=== PATIENT | male | born 1985 | race Caucasian/White ===

== ENCOUNTER 2021-01-10 08:29 | Emergency (ER) | payer OTHER ==
[2021-01-10 08:41] VITALS: BP 111/73; PULSE 69; O2SAT 99
--- NOTE | 2021-01-10 08:59 | ERPHSYRPT ---
- History of Present Illness Time Seen by Provider: 01/10/21 08:55 Source: patient Exam Limitations: no limitations Patient Subjective Stated Complaint: Pt states that he has "swollen discs and sciatica" and it began hurting around midnight last night Triage Nursing Assessment: Pt drove self to the ER, vitals wnl, rates pain 10/10, states that the pain is in his lower left back and shoots down his left leg, wiggling legs and doesn't appear to be in any distress, pulses normal, denies injury Physician History: Is a 35-year-old male who presents with a complaint of back pain which started about midnight last night. He did go fishing on a boat yesterday and thinks that sitting on the narrow metal bench may have aggravated his chronic sciatica. He states it could have years ago he was working for [employer] and had a CT done at [facility] in [place] that showed a swollen disc impinging on the nerve in the left leg. He has had no further imaging since then. Timing/Duration: today Method of Injury: unknown, prior injury Quality: burning, radiating (Left leg), sharp Back Pain Location: lumbar spine Back Pain Radiation: buttocks, upper legs Severity of Pain-Max: severe Severity of Pain-Current: severe Modifying Factors: Improves With: movement Associated Symptoms: denies symptoms Previous symptoms: same symptoms as today Allergies/Adverse Reactions: No Known Drug Allergies Allergy (Verified 01/10/21 08:41) Home Medications: Albuterol Sulfate [Albuterol Sulfate Hfa] 1 inh PO UD PRN 01/10/21 [History] Budesonide/Formoterol Fumarate [Budesonide-Formoterol 160-4.5] 1 inh PO UD PRN 01/10/21 [History] Olanzapine 5 mg [zyPREXA 5MG TABLET] 5 mg PO DAILY 01/10/21 [History] clonazePAM [Clonazepam] 1 mg PO DAILY 01/10/21 [History] Travel Risk - International Travel Have you traveled outside of the country in past 3 weeks: No - Coronavirus Screening Are you exhibiting any of the following symptoms?: No Close contact with a COVID-19 positive Pt in past 14-21 Days: No - Vaccine Status Have you recieved a Covid-19 vaccination: No - Review of Systems Constitutional: No Fever, No Chills Eyes: No Symptoms Ears, Nose, & Throat: No Symptoms Respiratory: No Cough, No Dyspnea Cardiac: No Chest Pain, No Edema, No Syncope Abdominal/Gastrointestinal: No Abdominal Pain, No Nausea, No Vomiting, No Diarrhea Genitourinary Symptoms: No Dysuria Musculoskeletal: Back Pain, No Neck Pain Skin: No Rash Neurological: No Dizziness, No Focal Weakness, No Sensory Changes Psychological: No Symptoms Endocrine: No Symptoms All Other Systems: Reviewed and Negative - Past Medical History Pertinent Past Medical History: Yes Respiratory History: Asthma Other Medical History: disc - Past Surgical History Past Surgical History: Yes Other Surgical History: fatty tumor removed from back - Social History Smoking Status: Never smoker Exposure to second hand smoke: No Drug Use: none Patient Lives Alone: Yes - Nursing Vital Signs Nursing Vital Signs: Initial Vital Signs Temperature 97.2 F 01/10/21 08:32 Pulse Rate 69 01/10/21 08:32 Blood Pressure 111/73 01/10/21 08:32 O2 Sat by Pulse Oximetry 99 01/10/21 08:32 Pain Scale Pain Intensity [Left Posterior 10 Distal Back] Pain Intensity 10 - Physical Exam General Appearance: mild distress, alert Eye Exam: PERRL/EOMI, eyes nml inspection Neck Exam: normal inspection, non-tender, supple, full range of motion, No meningismus, No midline tenderness Respiratory Exam: normal breath sounds, lungs clear, No respiratory distress Cardiovascular Exam: regular rate/rhythm, normal heart sounds Gastrointestinal Exam: soft, No tenderness, No mass Back Exam: normal inspection, vertebral tenderness, decreased range of motion, muscle spasm, point tenderness Extremity Exam: normal inspection, normal range of motion, No calf tenderness, No pedal edema Neurologic Exam: alert, oriented x 3, cooperative, digital analyst II-XII nml as tested, normal mood/affect, sensation nml, abnormal gait, other (Straight leg positive on the left), No motor deficits Skin Exam: normal color, warm, dry, No rash SpO2 Interpretation: normal SpO2: 99 O2 Delivery: Room Air - CT Exams Lumbar Spine CT Interpretation: Tele-radiologist Report, Other (Teleradiology report says impression was no fracture bilateral sacroiliitis and some mild bilateral lateral recess stenosis at L4-5 and L5-S1.) Ordered Tests: Active Orders 24 hr Category Date Time Status LUMBAR SPINE W/O [CT] Stat Exams 01/10/21 08:46 Ordered - Progress Progress: unchanged - Departure Departure Disposition: Home Clinical Impression: Bilateral sacroiliitis, Radiculopathy Condition: Stable Critical Care Time: No Referrals: Provider,Unknown [Primary Care Provider] - Instructions: Low Back Pain (DC), Sciatica (DC) Prescriptions: Hydrocodone/Acetaminophen [Hydrocodone-Acetamin 5-325 mg] 1 tab PO Q6HPRN PRN 3 Days #12 tablet MDD 4 PRN Reason: Pain Prednisone 10 mg [Deltasone 10 mg] 20 mg PO TID 4 Days #24 tablet Diclofenac Sodium 50 mg [Voltaren 50 mg] 50 mg PO TID 30 Days #90 tablet.ec
--- NOTE | 2021-01-10 21:44 | XRAY ---
Indication: Low back pain. Left sciatica. Multiple contiguous axial images obtained through the lumbar spine. Sagittal and coronal reformatted images obtained. Comparison: None SI joints are bilaterally sclerotic favoring sacroiliitis. No focal disc herniation, spinal canal, or foraminal stenosis. Facets are symmetric. Sagittal and coronal reformatted images demonstrates normal alignment with vertebral body heights/disc spaces maintained. Tiny T12-L2 Schmorl nodes. No acute or subluxation. Visualized noncontrasted soft tissues are unremarkable. Impression: Bilateral sacroiliitis. Multilevel Schmorl nodes. Comment: Preliminary interpretation was made by [facility]. No critical discrepancy.
== END 2021-01-10 10:03 | disposition home or self-care (01) ==
LOC: ED 08:29
DX: M46.1 Sacroiliitis, not elsewhere classified (principal); M54.10 Radiculopathy, site unspecified
CPT/HCPCS: 72131; 99283

== ENCOUNTER 2021-08-12 06:28 | Emergency (ER) | payer OTHER ==
[2021-08-12 06:43] VITALS: PULSE 62; O2SAT 96
[2021-08-12] MEDS ORDERED: TORAdol 30 mg Injection ONE (07:17)
[2021-08-12] MEDS ORDERED: DECADRON 10MG INJ. ONE (07:18)
[2021-08-12] MEDS: TORAdol 30 mg Injection IM ONE (07:22)
[2021-08-12] MEDS: DECADRON 10MG INJ. IM ONE (07:23)
--- NOTE | 2021-08-12 07:26 | ERPHSYRPT ---
- History of Present Illness Time Seen by Provider: 08/12/21 06:45 Source: patient Exam Limitations: no limitations Patient Subjective Stated Complaint: lower back pain Triage Nursing Assessment: Patient ambulated back to ED and transferred self to bed. Patient A+O X 3. Patient's skin pink, warm and dry. Patient complains of left lower back pain that radiates down left buttock and into left leg 8. Patient denies recent injury and states he has sciatica problems. Physician History: Patient is a 35-year-old male with history of sciatica confirmed on MRI presents to our ED with a flareup of his sciatica. Patient states he has a bulging disc that is pinching on his left sciatic nerve. Patient states that when it flares up its treated with Ultram and/or Lortab. Patient states he awoke this morning with his pain. The pain this morning is the same as is typical of sciatica flareup. Patient states his job is physically demanding and he is standing up for long periods of time. Pain described as an ache that radiates down to his foot. No trauma. No fever. No saddle anesthesia. No change in bowel bladder function. No lower extremity weakness. No numbness tingling or weakness. No hematuria or dysuria. No urinary symptomology. Symptoms are mild to moderate in intensity. Standing for prolonged periods of time laying flat for prolonged period of time reproduce symptoms. Patient voices no other complaints or concerns at this time. Timing/Duration: today Method of Injury: other (Lying flat) Quality: burning, aching Back Pain Location: lumbar spine Back Pain Radiation: lower legs (Pain radiates from the low back down to his left lower extremity.) Severity of Pain-Max: moderate Severity of Pain-Current: mild Modifying Factors: Improves With: other (Prolonged static positions straight leg raise also reproduce pain.) Associated Symptoms: denies symptoms Previous symptoms: same symptoms as today Allergies/Adverse Reactions: No Known Drug Allergies Allergy (Verified 08/12/21 06:35) Home Medications: clonazePAM [Clonazepam] 1 mg PO DAILY 01/10/21 [History] Hx Influenza Vaccination/Date Given: Yes Hx Pneumococcal Vaccination/Date Given: Yes Immunizations Up to Date: Yes Travel Risk - International Travel Have you traveled outside of the country in past 3 weeks: No - Coronavirus Screening Are you exhibiting any of the following symptoms?: No Close contact with a COVID-19 positive Pt in past 14-21 Days: No - Vaccine Status Have you recieved a Covid-19 vaccination: No - Review of Systems Constitutional: No Symptoms, No Fever, No Chills Eyes: No Symptoms Ears, Nose, & Throat: No Symptoms Respiratory: No Symptoms, No Cough, No Dyspnea Cardiac: No Symptoms, No Chest Pain, No Edema, No Syncope Abdominal/Gastrointestinal: No Symptoms, No Abdominal Pain, No Nausea, No Vomiting, No Diarrhea Genitourinary Symptoms: No Symptoms, No Dysuria Musculoskeletal: No Symptoms, No Back Pain, No Neck Pain Skin: No Symptoms, No Rash Neurological: No Symptoms, No Dizziness, No Focal Weakness, No Sensory Changes Psychological: No Symptoms Endocrine: No Symptoms Hematologic/Lymphatic: No Symptoms Immunological/Allergic: No Symptoms All Other Systems: Reviewed and Negative - Past Medical History Pertinent Past Medical History: Yes Respiratory History: Asthma Other Medical History: disc - Past Surgical History Past Surgical History: Yes Other Surgical History: fatty tumor removed from back - Social History Smoking Status: Never smoker Exposure to second hand smoke: No Drug Use: none Patient Lives Alone: Yes - Nursing Vital Signs Nursing Vital Signs: Initial Vital Signs Temperature 98.1 F 08/12/21 06:37 Pulse Rate 62 08/12/21 06:37 Respiratory Rate 18 08/12/21 06:37 Blood Pressure 124/64 08/12/21 06:37 O2 Sat by Pulse Oximetry 96 08/12/21 06:37 Pain Scale Pain Intensity 8 - Physical Exam General Appearance: no apparent distress, alert Eye Exam: PERRL/EOMI, eyes nml inspection Ears, Nose, Throat Exam: normal ENT inspection, pharynx normal, moist mucous membranes Neck Exam: normal inspection, non-tender, supple, full range of motion, No meningismus, No midline tenderness Respiratory Exam: normal breath sounds, lungs clear, airway intact, No respiratory distress Cardiovascular Exam: regular rate/rhythm, normal heart sounds Gastrointestinal Exam: soft, normal bowel sounds, No tenderness, No mass Extremity Exam: normal inspection, normal range of motion, other (Positive straight leg raise), No calf tenderness, No pedal edema Peripheral Pulses: dorsalis-pedis (R): 2+, dorsalis-pedis (L): 2+ Neurologic Exam: alert, oriented x 3, cooperative, supervisor ovens II-XII nml as tested, normal mood/affect, sensation nml, No motor deficits Skin Exam: normal color, warm, dry, No rash SpO2 Interpretation: normal SpO2: 96 O2 Delivery: Room Air - Course Nursing assessment & vital signs reviewed: Yes Ordered Tests: Medication Summary Discontinued Medications Generic Name Dose Route Start Last Admin Trade Name Karina PRN Reason Stop Dose Admin Dexamethasone Sodium Phosphate 8 mg 08/12/21 07:15 Dexamethasone Sod Phosphate 10 Mg/Ml IM 08/12/21 07:16 STAT ONE Ketorolac Tromethamine 60 mg 08/12/21 07:14 Ketorolac Tromethamine 30 Mg/Ml Inj IM 08/12/21 07:15 STAT ONE - Progress Progress: improved Progress Note: Patient is a 35-year-old male presents to our ED with complaints of flareup of his known sciatica. This has been confirmed on MRI. Patient states he has bulging disc. Patient requesting Lortab and Ultram for pain control. I explained to patient that this is not the optimal treatment for his back pain. Patient received a dose of Toradol and Decadron in our ED. A prescription for Toradol was provided to patient. Patient states he is receiving pain relief. Yasir pinto is scheduled to work today. Patient states he is ready for discharge however will need a work note. Work note was written for patient. Patient should take a minimum of 3 days off until symptoms improve. Patient agrees to follow-up with primary care doctor within 48 hours for reevaluation. Patient voices no other complaints or concerns at this time. Patient requesting discharge. Portions of this note were created with voice recognition technology. There may be grammatical, spelling, punctuation or sound alike errors 08/12/21 07:30 Counseled pt/family regarding: diagnosis, need for follow-up - Departure Departure Disposition: Home Clinical Impression: Sciatica Condition: Stable Critical Care Time: No Referrals: GURJIT JOSEPH MD [Primary Care Provider] - Follow up/PCP as directed Instructions: Sciatica (DC), Low Back Pain (DC) Additional Instructions: Discharge/Care Plan ASHLY ROSS was seen on 08/12/21 in the Emergency Room. The patient was counseled regarding Diagnosis,Lab results, Imaging studies, need for follow up and when to return to the Emergency Room. Prescriptions given: Discharge Note I have spoken with the patient and/or caregivers. I have explained the patient's condition, diagnosis and treatment plan based on the information available to me at this time. I have answered the patient's and/or caregiver's questions and addressed any concerns. The patient and/or caregivers have as good understanding of the patient's diagnosis, condition and treatment plan as can be expected at this point. The vital signs have been stable. The patient's condition is stable and appropriate for discharge from the emergency department. The patient will pursue further outpatient evaluation with the primary care physician or other designated or consulting physician as outlined in the discharge instructions. The patient and/or caregivers are agreeable to this plan of care and follow-up instructions have been explained in detail. The patient and/or caregivers have received these instruction. The patient/and or caregivers are aware that any significant change in condition or worsening of symptoms should prompt an immediate return to this or the closest emergency department or call 911. Forms: Work/School Release Form
[2021-08-12 07:40] VITALS: BP 119/50
== END 2021-08-12 08:00 | disposition home or self-care (01) ==
LOC: ED 06:28
DX: M54.32 Sciatica, left side (principal)
CPT/HCPCS: 96372; 99284; J1100; J1885

== ENCOUNTER 2021-09-29 04:51 | Emergency (ER) | payer OTHER ==
--- NOTE | 2021-09-29 05:14 | ERPHSYRPT ---
- History of Present Illness Time Seen by Provider: 09/29/21 05:00 Source: patient Exam Limitations: no limitations Patient Subjective Stated Complaint: lt wrist pain Triage Nursing Assessment: pt c/o lt wrist pain after pulling on a drum mold at work yesterday. Pt states, "I think I heard a pop". Lt Radial pulse present. No edema or bruising noted. Physician History: Patient is a 36-year-old male presents to our ED with complaint of left wrist pain. Patient states he was pulling on a drum mold at work. At that moment patient felt a pop. Since then patient has been experiencing pain involving his entire left wrist. No blunt trauma. No numbness tingling weakness. Pain described as an ache that is localized. No radiation. Pain reproduced with movement and palpation. Pain improved with rest. Symptoms are mild to moderate in intensity. Patient voices no other complaints or concerns at this time. Patient has taken Tylenol and ibuprofen prior to arrival. Occurred: yesterday Method of Injury: other (Pulling) Quality: intermittent Severity of Pain-Max: moderate Severity of Pain-Current: mild Extremities Pain Location: wrist: left Modifying Factors: Improves With: movement Associated Symptoms: none Allergies/Adverse Reactions: No Known Drug Allergies Allergy (Verified 09/29/21 05:08) Home Medications: clonazePAM [Clonazepam] 1 mg PO DAILY 01/10/21 [History] Hx Tetanus, Diphtheria Vaccination/Date Given: Yes Hx Influenza Vaccination/Date Given: Yes Hx Pneumococcal Vaccination/Date Given: No Immunizations Up to Date: Yes Travel Risk - International Travel Have you traveled outside of the country in past 3 weeks: No - Coronavirus Screening Are you exhibiting any of the following symptoms?: No Close contact with a COVID-19 positive Pt in past 14-21 Days: No - Vaccine Status Have you recieved a Covid-19 vaccination: No - Review of Systems Constitutional: No Symptoms, No Fever, No Chills Eyes: No Symptoms Ears, Nose, & Throat: No Symptoms Respiratory: No Symptoms, No Cough, No Dyspnea Cardiac: No Symptoms, No Chest Pain, No Edema, No Syncope Abdominal/Gastrointestinal: No Symptoms, No Abdominal Pain, No Nausea, No Vomiting, No Diarrhea Genitourinary Symptoms: No Symptoms, No Dysuria Musculoskeletal: No Symptoms, No Back Pain, No Neck Pain Skin: No Symptoms, No Rash Neurological: No Symptoms, No Dizziness, No Focal Weakness, No Sensory Changes Psychological: No Symptoms Endocrine: No Symptoms Hematologic/Lymphatic: No Symptoms Immunological/Allergic: No Symptoms All Other Systems: Reviewed and Negative - Past Medical History Pertinent Past Medical History: Yes Respiratory History: Asthma Other Medical History: 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 - Past Surgical History Past Surgical History: Yes Other Surgical History: fatty tumor removed from back - Social History Smoking Status: Current every day smoker How long have you smoked: 15 yrs Exposure to second hand smoke: Yes Drug Use: none Patient Lives Alone: No - Nursing Vital Signs Nursing Vital Signs: Initial Vital Signs Temperature 97.7 F 09/29/21 04:51 Pulse Rate 67 09/29/21 04:51 Respiratory Rate 18 09/29/21 04:51 Blood Pressure 121/69 09/29/21 04:51 O2 Sat by Pulse Oximetry 97 09/29/21 04:51 Pain Scale Pain Intensity 8 - Physical Exam General Appearance: no apparent distress, alert Eyes, Ears, Nose, Throat Exam: normal ENT inspection, TMs normal, pharynx normal, moist mucous membranes Neck Exam: normal inspection, non-tender, supple, full range of motion Cardiovascular/Respiratory Exam: chest non-tender, normal breath sounds, regular rate/rhythm, heart sounds normal, no respiratory distress Abdominal Exam: non-tender, soft, No guarding Back Exam: normal inspection, normal range of motion, No vertebral tenderness Shoulder Exam: normal inspection, non-tender, no evidence of injury, normal ROM Elbow/Forearm Exam: normal inspection, non-tender, no evidence of injury, normal ROM Wrist Exam: normal inspection, non-tender, no evidence of injury, bone tenderness (Circumferential wrist tenderness. Pain not isolated to the anatomic snuffbox or the scaphoid.), limited ROM (Limited due to pain. Involve extremities neurovascular intact distally. Compartments are soft. Cap refill less than 2 seconds.) Hand Exam: normal inspection, non-tender, no evidence of injury, normal ROM Neuro/Tendon Exam: normal sensation, normal motor functions, normal tendon functions Mental Status Exam: alert, oriented x 3, cooperative Skin Exam: normal color, warm, dry SpO2 Interpretation: normal, borderline oxygenation SpO2: 97 O2 Delivery: Room Air - Course Nursing assessment & vital signs reviewed: Yes - Radiology Exams Wrist X-ray Interpretation: Interpreted by me (No fractures or dislocations. No soft tissue abnormalities.) Ordered Tests: Active Orders 24 hr Category Date Time Status WRIST (MIN 3 VIEWS) Stat Exams 09/29/21 05:06 Taken - Progress Progress: improved Progress Note: Patient reassessed. He is resting comfortably. Patient requested ibuprofen for pain control. X-ray negative for fracture dislocation. No soft tissue abnormalities. Patient received a left wrist cock-up splint. Patient referred to orthopedic clinic for further evaluation and treatment. No indication for further work-up at this time. Will discharge home. Patient agrees to follow-up with the orthopedic clinic within 48 hours for evaluation. He voices no other complaints or concerns at this time. Portions of this note were created with voice recognition technology. There may be grammatical, spelling, punctuation or sound alike errors 09/29/21 05:31 Counseled pt/family regarding: diagnosis, need for follow-up, rad results - Departure Departure Disposition: Home Clinical Impression: Wrist sprain Condition: Stable Critical Care Time: No Referrals: GURJIT JOSEPH MD [Primary Care Provider] - Follow up/PCP as directed Additional Instructions: Discharge/Care Plan ASHLY ROSS was seen on 09/29/21 in the Emergency Room. The patient was counseled regarding Diagnosis,Lab results, Imaging studies, need for follow up and when to return to the Emergency Room. Prescriptions given: Discharge Note I have spoken with the patient and/or caregivers. I have explained the patient's condition, diagnosis and treatment plan based on the information available to me at this time. I have answered the patient's and/or caregiver's questions and addressed any concerns. The patient and/or caregivers have as good understanding of the patient's diagnosis, condition and treatment plan as can be expected at this point. The vital signs have been stable. The patient's condition is stable and appropriate for discharge from the emergency department. The patient will pursue further outpatient evaluation with the primary care physician or other designated or consulting physician as outlined in the discharge instructions. The patient and/or caregivers are agreeable to this plan of care and follow-up instructions have been explained in detail. The patient and/or caregivers have received these instruction. The patient/and or caregivers are aware that any significant change in condition or worsening of symptoms should prompt an immediate return to this or the closest emergency department or call 911. Outpatient Orders: Ortho Referral Time Frame: 1 Day, Facility: [facility], Location: ORTHO CLINIC
[2021-09-29] MEDS ORDERED: MOTRIN 600 MG PO ONE (05:36)
[2021-09-29] MEDS ORDERED: MOTRIN 600 MG ONE (05:39)
[2021-09-29 05:54] VITALS: BP 108/58; PULSE 64; O2SAT 98
--- NOTE | 2021-09-29 09:00 | XRAY ---
Indication: Pain following injury. Comparison: None 3 view left wrist obtained. No bony, articular, or soft tissue abnormalities.
== END 2021-09-29 05:53 | disposition home or self-care (01) ==
LOC: ED 04:51
DX: S63.502A Unspecified sprain of left wrist, initial encounter (principal); X50.0XXA Overexertion from strenuous movement or load, initial encounter; Y99.0 Civilian activity done for income or pay; Z72.0 Tobacco use
CPT/HCPCS: 73110; 99284; L3908; A9270-GY

== ENCOUNTER 2022-01-18 11:03 | Emergency (ER) | payer OTHER ==
[2022-01-18] MEDS ORDERED: Sodium Chloride 0.9% 1000 ML 1,000 ML IV STA (11:51)
[2022-01-18] MEDS ORDERED: PERCOCET TABLET 5/325MG PO ONE (11:51)
[2022-01-18] MEDS ORDERED: Zofran 4 MG/2 ML VIAL IV ONE (11:59)
[2022-01-18] MEDS ORDERED: Zofran 4 MG/2 ML VIAL ONE (11:59)
[2022-01-18] MEDS ORDERED: PERCOCET TABLET 5/325MG ONE (12:00)
[2022-01-18] MEDS ORDERED: Sodium Chloride 0.9% 1000 ML 1,000 ML ONE (12:00)
[2022-01-18 12:06] LABS: Absolute Neutrophil Ct (ANC) 5.26 x10^3/uL (1.4-6.9); Basophil (Absolute #) 0.05 x10^3/uL (0-0.4); Eosinophil % 4.3 % (0.00-5.0); Eosinophil (Absolute #) 0.37 x10^3/uL (0-0.5); Hematocrit 49.1 % (42-50); Hemoglobin 16.4 g/dL (12.5-18.0); Lymphocyte (Absolute #) 2.18 x10^3/uL (1.0-4.6); Lymphocytes % 25.5 % (24.0-44.0); Mean Cell Volume 90.6 fL (78-100); Mean Corpuscular Hemoglobin 30.3 pg (26-32); Mean Corpuscular Hgb Concent. 33.4 g/dL (32-36); Mean Platelet Volume 9.4 fL (7.5-11.0); Monocyte (Absolute #) 0.65 x10^3/uL (0.0-1.3); Monocytes % 7.6 % (0.0-12.0); Neutrophil % 61.4 % (36.0-66.0); Platelet Count 328 x10^3/uL (150-450); Red Blood Count 5.42 x10^6/uL (4.1-5.6); Red Cell Distribution Width 12.3 % (11.5-14.0); White Blood Count 8.6 x10^3/uL (4.0-10.5)
[2022-01-18 12:20] LABS: ALBUMIN 5.3 g/dL (3.5-5.0); ALKALINE PHOSPHATASE 74 U/L (38-126); ANION GAP 17.4 MEQ/L (5-15); BLOOD UREA NITROGEN 21 mg/dL (9-20); CHLORIDE 102 mmol/L (98-107); Calcium 10.5 mg/dL (8.4-10.2); Carbon Dioxide 28 mmol/L (22-30); Creatinine 1 0.87 mg/dL (0.66-1.25); EST GLOMERULAR FILTRATION RATE > 60.0 ML/MIN; Glucose 89 mg/dL (74-106); LIPASE 71 U/L (23-300); Potassium 4.3 mmol/L (3.5-5.1); SGOT/AST 36 U/L (17-59); SGPT/ALT 19 U/L (0-50); SODIUM 143 mmol/L (137-145); Total Protein 9.4 g/dL (6.3-8.2)
[2022-01-18] MEDS ORDERED: TORAdol 30 mg Injection ONE (12:54)
[2022-01-18] MEDS ORDERED: TORAdol 30 mg Injection IV ONE (12:59)
--- NOTE | 2022-01-18 13:09 | ERPHSYRPT ---
- History of Present Illness Time Seen by Provider: 01/18/22 11:06 Historian: patient Exam Limitations: no limitations Patient Subjective Stated Complaint: pt here for generalized abd pain with loose stools since yesterday, he states he eat sauce 3 days ago Triage Nursing Assessment: pt alert, respe easy, face mask in place, abd soft, bs heart, no edema noted Physician History: 36-year-old male presented in the ER with chief complaint of generalized abdominal pain with nausea and diarrhea since yesterday. Multiple episodes of loose stool. No fever or chills reported. Timing/Duration: yesterday, constant, gradual onset, worse Activities at Onset: rest Quality: cramping, sharpness Abdominal Pain Onset Location: generalized abdomen Pain Radiation: no radiation Severity of Pain-Max: moderate Severity of Pain-Current: moderate Modifying Factors: Worsens With: movement, palpation Associated Symptoms: diarrhea, fatigue, nausea Previous symptoms: no prior history Allergies/Adverse Reactions: No Known Drug Allergies Allergy (Verified 01/18/22 11:17) Home Medications: Ibuprofen 1 ea TID 01/18/22 [History] Hx Tetanus, Diphtheria Vaccination/Date Given: No Hx Influenza Vaccination/Date Given: Yes Hx Pneumococcal Vaccination/Date Given: No Immunizations Up to Date: Yes Travel Risk - International Travel Have you traveled outside of the country in past 3 weeks: No - Coronavirus Screening Are you exhibiting any of the following symptoms?: No Close contact with a COVID-19 positive Pt in past 14-21 Days: No - Vaccine Status Have you recieved a Covid-19 vaccination: No - Review of Systems Constitutional: Fatigue, Weakness Eyes: No Symptoms Ears, Nose, & Throat: No Symptoms Respiratory: No Symptoms Cardiac: No Symptoms Abdominal/Gastrointestinal: Abdominal Pain, Nausea, Diarrhea Genitourinary Symptoms: No Symptoms Musculoskeletal: No Symptoms Skin: No Symptoms Neurological: No Symptoms Psychological: No Symptoms Endocrine: No Symptoms Hematologic/Lymphatic: No Symptoms Immunological/Allergic: No Symptoms - Past Medical History Pertinent Past Medical History: Yes Respiratory History: Asthma Other Medical History: 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 - Past Surgical History Past Surgical History: Yes Other Surgical History: fatty tumor removed from back - Social History Smoking Status: Current some day smoker How long have you smoked: 15 yrs Exposure to second hand smoke: Yes Drug Use: none Patient Lives Alone: No - Nursing Vital Signs Nursing Vital Signs: Initial Vital Signs Temperature 97.8 F 01/18/22 11:13 Pulse Rate 69 01/18/22 11:13 Respiratory Rate 18 01/18/22 11:13 Blood Pressure 131/72 01/18/22 11:13 O2 Sat by Pulse Oximetry 97 01/18/22 11:13 Pain Scale Pain Intensity 4 - Physical Exam General Appearance: no apparent distress Eye Exam: PERRL/EOMI Ears, Nose, Throat Exam: normal ENT inspection, pharynx normal Neck Exam: normal inspection, non-tender, supple, full range of motion Respiratory Exam: normal breath sounds, lungs clear Cardiovascular Exam: regular rate/rhythm, normal heart sounds Gastrointestinal/Abdomen Exam: soft, normal bowel sounds, tenderness (Generalized) Back Exam: normal inspection, normal range of motion Extremity Exam: normal inspection, normal range of motion, pelvis stable Neurologic Exam: alert, oriented x 3, cooperative Skin Exam: normal color SpO2 Interpretation: normal SpO2: 97 O2 Delivery: Room Air Ordered Tests: Active Orders 24 hr Category Date Time Status IV Insertion STAT Care 01/18/22 11:51 Active NPO (ED) STAT Care 01/18/22 11:51 Active ABDOMEN AND PELVIS W/0 CONTRAS [CT] Stat Exams 01/18/22 12:12 Taken CBC W DIFF Stat Lab 01/18/22 12:00 Completed CMP Stat Lab 01/18/22 12:00 Completed LIPASE Stat Lab 01/18/22 12:00 Completed UA W/RFX CULTURE Stat Lab 01/18/22 12:00 Completed Medication Summary Discontinued Medications Generic Name Dose Route Start Last Admin Trade Name Ehq PRN Reason Stop Dose Admin Sodium Chloride 1,000 mls @ 999 mls/hr 01/18/22 11:51 01/18/22 13:03 Sodium Chloride 0.9% 1000 Ml IV 01/18/22 12:51 Infused .Q1H1M STA Infusion Sodium Chloride Confirm 01/18/22 12:00 Sodium Chloride 0.9% 1000 Ml Administered 01/18/22 12:01 Dose 1,000 mls @ ud .ROUTE .STK-MED ONE Ketorolac Tromethamine Confirm 01/18/22 12:54 Ketorolac Tromethamine 30 Mg/Ml Inj Administered 01/18/22 12:55 Dose 30 mg .ROUTE .STK-MED ONE Ketorolac Tromethamine 30 mg 01/18/22 12:59 01/18/22 13:09 Ketorolac Tromethamine 30 Mg/Ml Inj IV 01/18/22 13:00 30 mg STAT ONE Administration Ondansetron HCl 4 mg 01/18/22 11:59 01/18/22 12:01 Ondansetron Hcl 4 Mg/2 Ml Vial IV 01/18/22 12:00 4 mg STAT ONE Administration Ondansetron HCl Confirm 01/18/22 11:59 Ondansetron Hcl 4 Mg/2 Ml Vial Administered 01/18/22 12:00 Dose 4 mg .ROUTE .STK-MED ONE Oxycodone/Acetaminophen 1 tab 01/18/22 11:51 01/18/22 12:01 Oxycodone Hcl/Apap 5 Mg/325 Mg Tablet PO 01/18/22 11:52 1 tab STAT ONE Administration Oxycodone/Acetaminophen Confirm 01/18/22 12:00 Oxycodone Hcl/Apap 5 Mg/325 Mg Tablet Administered 01/18/22 12:01 Dose 1 tab .ROUTE .STK-MED ONE Lab/Rad Data: Laboratory Result Diagrams 01/18/22 12:00 01/18/22 12:00 Laboratory Results 01/18/22 01/18/22 01/18/22 Range/Units 12:00 12:00 12:00 WBC 8.6 (4.0-10.5) x10^3/uL RBC 5.42 (4.1-5.6) x10^6/uL Hgb 16.4 (12.5-18.0) g/dL Hct 49.1 (42-50) % MCV 90.6 (78-100) fL MCH 30.3 (26-32) pg MCHC 33.4 (32-36) g/dL RDW 12.3 (11.5-14.0) % Plt Count 328 (150-450) x10^3/uL MPV 9.4 (7.5-11.0) fL Gran % 61.4 (36.0-66.0) % Immature Gran % (Auto) 0.6 H (0.00-0.4) % Nucleat RBC Rel Count 0.0 (0.00-0.1) % Eos # (Auto) 0.37 (0-0.5) x10^3/uL Immature Gran # (Auto) 0.05 H (0.00-0.03) x10^3u/L Absolute Lymphs (auto) 2.18 (1.0-4.6) x10^3/uL Absolute Monos (auto) 0.65 (0.0-1.3) x10^3/uL Absolute Nucleated RBC 0.00 (0.00-0.01) x10^3u/L Lymphocytes % 25.5 (24.0-44.0) % Monocytes % 7.6 (0.0-12.0) % Eosinophils % 4.3 (0.00-5.0) % Basophils % 0.6 (0.0-0.4) % Absolute Granulocytes 5.26 (1.4-6.9) x10^3/uL Basophils # 0.05 (0-0.4) x10^3/uL Sodium 143 (137-145) mmol/L Potassium 4.3 (3.5-5.1) mmol/L Chloride 102 (98-107) mmol/L Carbon Dioxide 28 (22-30) mmol/L Anion Gap 17.4 H (5-15) MEQ/L BUN 21 H (9-20) mg/dL Creatinine 0.87 (0.66-1.25) mg/dL Estimated GFR > 60.0 ML/MIN Glucose 89 (74-106) mg/dL Calcium 10.5 H (8.4-10.2) mg/dL Total Bilirubin 0.80 (0.2-1.3) mg/dL AST 36 (17-59) U/L ALT 19 (0-50) U/L Alkaline Phosphatase 74 (38-126) U/L Serum Total Protein 9.4 H (6.3-8.2) g/dL Albumin 5.3 H (3.5-5.0) g/dL Lipase 71 (23-300) U/L Urinalys Dipstick Clnc MAIN LAB Urine Color YELLOW (YELLOW) Urine Appearance CLEAR (CLEAR) Urine pH 7.0 (5-6) Ur Specific [place] 1.025 (1.005-1.025) POC Urine Protein Conf 30 (Negative) Urine Ketones NEGATIVE (NEGATIVE) Urine Nitrite NEGATIVE (NEGATIVE) Urine Bilirubin NEGATIVE (NEGATIVE) Urine Urobilinogen 0.2 (0-1) mg/dL Urine Leukocytes NEGATIVE (NEGATIVE) Urine WBC (Auto) 0-2 (0-5) /HPF Urine RBC (Auto) 0-2 (0-2) /HPF U Epithel Cells (Auto) NONE (FEW) /HPF Urine Bacteria (Auto) NONE SEEN (NEGATIVE) /HPF Urine RBC NEGATIVE (0-5) Yaakov/ul Urine Mucus (Auto) SLIGHT (NEGATIVE) /HPF Ur Culture Indicated? NO Urine Glucose NEGATIVE (NEGATIVE) mg/dL - Progress Progress: improved, pain not gone completely, re-examined Progress Note: 01/18/22 14:15 36-year-old is evaluated for abdominal pain with nausea and diarrhea. Given fluids and symptomatic treatment for pain. On reevaluation pain is better but not completely resolved. Has normal white count, grossly unremarkable chemistry except for mild element of dehydration. Obtain CT abdomen pelvis which is essentially unremarkable. I believe patient has gastroenteritis probably viral etiology, recommended supportive care. Discussed signs symptoms of worsening needing return to ER which he seems understanding. Stable for discharge. Counseled pt/family regarding: lab results, diagnosis, rad results - Departure Departure Disposition: Home Clinical Impression: Gastroenteritis Condition: Stable Critical Care Time: No Referrals: GURJIT JOSEPH MD [Primary Care Provider] - Follow up/PCP as directed (1-2 days for reevaluation) Instructions: Acute Abdomen (Belly Pain), Adult (DC), Viral Gastroenteritis Additional Instructions: Drink plenty of fluids to keep yourself well-hydrated. Take Tylenol as needed for pain. Return to ER for intractable pain, diarrhea, fever chills, intractable vomiting etc. Follow-up with primary care for reevaluation in 1 to 2 days. Take Zofran as needed. Prescriptions: Ondansetron ODT 4 MG [Zofran Odt 4 mg] 1 ea PO QIDPRN PRN #5 tablet PRN Reason: n/v
[2022-01-18 13:31] VITALS: BP 144/85; PULSE 63
[2022-01-18 13:53] LABS: Appearance CLEAR (CLEAR); Bilirubin NEGATIVE (NEGATIVE); Glucose NEGATIVE (NEGATIVE); Ketones NEGATIVE (NEGATIVE); Mucus SLIGHT /HPF (NEGATIVE); RBC 0-2 /HPF (0-2); Specific Gravity 1.025 (1.005-1.025); WBC 0-2 /HPF (0-5)
[2022-01-18 13:54] LABS: Dipstick done @ ? MAIN LAB; Nitrite NEGATIVE (NEGATIVE); Protein,Urine Dip 30 (Negative); RBC NEGATIVE Ery/ul (0-5); Urobilinogen 0.2 mg/dL (0-1)
[2022-01-18 13:55] LABS: Bacteria NONE SEEN /HPF (NEGATIVE); Urine Cultured Indicated? NO
[2022-01-18 14:17] VITALS: O2SAT 97
--- NOTE | 2022-01-18 19:37 | XRAY ---
Indication: Nausea, vomiting, and diarrhea. Colitis. Multiple contiguous axial images obtained through the abdomen and pelvis without contrast. Comparison: None Lung bases clear. Heart not enlarged. Noncontrasted stomach and bowel loops nonobstructed with normal appendix. No abnormal bowel wall thickening or inflammatory changes. Remaining liver, gallbladder, pancreas, spleen, adrenal glands, kidneys, ureters, bladder, and aorta appear unremarkable for noncontrast exam. No free fluid/air. Osseous structures intact. No ventral or inguinal hernias. Impression: CT abdomen/pelvis without contrast exam is negative. Comment: Preliminary interpretation made by [facility]. No critical discrepancy.
== END 2022-01-18 14:34 | disposition home or self-care (01) ==
LOC: ED 11:03
DX: K52.9 Noninfective gastroenteritis and colitis, unspecified (principal); R10.84 Generalized abdominal pain; R11.0 Nausea; Z72.0 Tobacco use
CPT/HCPCS: 36000; 36415; 74176; 80053; 81015; 83690; 85025; 96360; 96374; 96375; 99284; J1885; J2405; A9270-GY

== ENCOUNTER 2023-01-03 21:03 | Emergency (ER) | payer OTHER ==
--- NOTE | 2023-01-03 21:05 | ERPHSYRPT ---
- History of Present Illness Time Seen by Provider: 01/03/23 21:05 Source: patient Exam Limitations: no limitations Physician History: This is a 37-year-old white male patient who has been having intermittent right upper molar pain for 3 months. Last couple days the pain has worsened despite using ibuprofen Tylenol and topical Orajel. Patient states that he does not want to see a dentist. Timing/Duration: intermittent, worse (Since yesterday worsened), other (Chronic recurrent for 3 months) Severity: moderate Modifying Factors: Improves With: other (Mastication worsens) Associated Symptoms: denies symptoms Allergies/Adverse Reactions: No Known Drug Allergies Allergy (Verified 01/18/22 11:17) Home Medications: Ibuprofen 1 ea TID 01/18/22 [History] Hx Tetanus, Diphtheria Vaccination/Date Given: No Hx Influenza Vaccination/Date Given: Yes Hx Pneumococcal Vaccination/Date Given: No Travel Risk - International Travel Have you traveled outside of the country in past 3 weeks: No - Coronavirus Screening Are you exhibiting any of the following symptoms?: No Close contact with a COVID-19 positive Pt in past 14-21 Days: No - Vaccine Status Have you recieved a Covid-19 vaccination: No - Review of Systems Constitutional: No Symptoms Eyes: No Symptoms Ears, Nose, & Throat: Other (Tooth pain right upper molars) Respiratory: No Symptoms Cardiac: No Symptoms Abdominal/Gastrointestinal: No Symptoms Genitourinary Symptoms: No Symptoms Musculoskeletal: No Symptoms Skin: No Symptoms Neurological: No Symptoms Psychological: No Symptoms Endocrine: No Symptoms Hematologic/Lymphatic: No Symptoms Immunological/Allergic: No Symptoms All Other Systems: Reviewed and Negative - Past Medical History Pertinent Past Medical History: Yes Respiratory History: Asthma Other Medical History: 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 - Past Surgical History Past Surgical History: Yes Other Surgical History: fatty tumor removed from back - Social History Smoking Status: Current some day smoker How long have you smoked: 15 yrs Exposure to second hand smoke: Yes Drug Use: none Patient Lives Alone: No - Nursing Vital Signs Nursing Vital Signs: Initial Vital Signs Temperature 97.9 F 01/03/23 21:09 Pulse Rate 106 H 01/03/23 21:09 Respiratory Rate 18 01/03/23 21:09 Blood Pressure 135/81 01/03/23 21:09 O2 Sat by Pulse Oximetry 96 01/03/23 21:09 Pain Scale Pain Intensity 10 - Physical Exam General Appearance: no apparent distress, alert, anxiety Eye Exam: PERRL/EOMI, eyes nml inspection Ears, Nose, Throat Exam: other (Tender right upper molars with tenderness of the gingiva.) Neck Exam: normal inspection, non-tender, supple, full range of motion Respiratory Exam: airway intact, No chest tenderness, No respiratory distress Cardiovascular Exam: tachycardia (Mild) Gastrointestinal/Abdomen Exam: No tenderness Rectal Exam: not done Back Exam: normal inspection, normal range of motion, No CVA tenderness, No vertebral tenderness Extremity Exam: normal inspection, normal range of motion, pelvis stable Neurologic Exam: alert, oriented x 3, cooperative, nursing home physician II-XII nml as tested, normal mood/affect, nml cerebellar function, nml station & gait, sensation nml Skin Exam: normal color, warm, dry Lymphatic Exam: No adenopathy SpO2 Interpretation: normal O2 Delivery: Room Air - Course Nursing assessment & vital signs reviewed: Yes - Progress Progress: unchanged, pain not gone completely Progress Note: 01/03/23 21:29 This patient's medical issue is 1 of low complexity. The level of complexity and the work-up performed is based on review of the patient's past medical hi story, review the patient's medication list, review of the patient's drug allergy list, history of present illness and physical findings on examination. Patient does not require laboratory studies or radiographic studies. We will treat this patient with amoxicillin here in the emergency department and send a prescription for additional amoxicillin remotely to his pharmacy. Patient is to continue the Orajel, ibuprofen and Tylenol as an outpatient. Patient is to follow-up with the dentist tomorrow by phone, 01/04/2023, for definitive care. Counseled pt/family regarding: diagnosis, need for follow-up Medical Desision Making - Diagnostic Testing Diagnostic test were ordered, analyzed, and reviewed by me: No - Risk of complications The pt has a mod risk of morbidity or mortality based on: Need for prescription drug management - Departure Departure Disposition: Home Clinical Impression: Pain due to dental caries Condition: Stable Critical Care Time: No Additional Instructions: Continue using ibuprofen, Tylenol and Orajel medication. Call the dentist tomorrow, 01/04/2023 to make arrangements for an appointment for definitive care. Take your antibiotics as prescribed. Prescriptions: Amoxicillin 500 mg Cap [Amoxil 500 mg] 500 mg PO TID #30 cap
[2023-01-03 21:19] VITALS: BP 135/81; PULSE 106; O2SAT 96
[2023-01-03] MEDS ORDERED: AMOXIL 500 MG PO ONE (21:26)
[2023-01-03] MEDS ORDERED: PERCOCET TABLET 5/325MG PO STA (21:26)
[2023-01-03] MEDS ORDERED: PERCOCET TABLET 5/325MG ONE (21:30)
[2023-01-03] MEDS ORDERED: AMOXIL 500 MG ONE (21:31)
== END 2023-01-03 21:52 | disposition home or self-care (01) ==
LOC: ED 21:03
DX: K02.9 Dental caries, unspecified (principal); K08.89 Other specified disorders of teeth and supporting structures; Z28.310 Unvaccinated for COVID-19; Z72.0 Tobacco use
CPT/HCPCS: 99282; A9270-GY

== ENCOUNTER 2023-04-10 19:08 | Emergency (ER) | payer OTHER ==
[2023-04-10 19:26] VITALS: TEMP 98.5
[2023-04-10] MEDS ORDERED: XYLOCAINE 1% HCL 20 ML MDV IJ ONE (19:28)
[2023-04-10] MEDS ORDERED: Sensorcaine 0.25% 10 ML IJ ONE (19:28)
--- NOTE | 2023-04-10 19:28 | ERPHSYRPT ---
- History of Present Illness Time Seen by Provider: 04/10/23 19:18 Source: patient Exam Limitations: no limitations Patient Subjective Stated Complaint: Toothache Physician History: Patient's been having intermittent right upper dental pain for the last 2 months, with a flareup over the last 2 hours. He has not had any intervention on the tooth in the last 2 months, has not had any recent HEENT procedures and denies any recent endoscopy. Patient also has some rhinorrhea and a sore throat currently also. Timing/Duration: abrupt onset, hours (2) Severity: moderate ENT Location: throat, dental Prearrival Treatment: over the counter meds (Use a dose of ibuprofen 1 hour prior to coming to the emergency department) Modifying Factors: Improves With: nothing Associated Symptoms: nasal congestion/drainage, sore throat, No ear pain (R), No ear pain (L), No cough, No fever, No chills, No change in hearing, No dizziness, No drooling, No ear drainage, No facial pain/swelling, No headache, No hearing loss, No jaw pain, No malaise, No motion sickness, No epistaxis, No nasal foreign body, No neck pain, No poor fluid intake, No poor solids intake, No ringing of ears, No swollen glands, No sinus infection Allergies/Adverse Reactions: No Known Drug Allergies Allergy (Verified 04/10/23 19:25) Hx Tetanus, Diphtheria Vaccination/Date Given: No Hx Influenza Vaccination/Date Given: Yes Hx Pneumococcal Vaccination/Date Given: No Travel Risk - Vaccine Status Have you recieved a Covid-19 vaccination: No - Review of Systems Constitutional: No Fever, No Chills Eyes: No Symptoms, No Discharge, No Eye Pain, No Eye Redness, No Vision Changes Ears, Nose, & Throat: No Symptoms, Throat Pain, No Ear Pain, No Ear Discharge, No Nose Congestion, No Mouth Pain, No Throat Swelling, No Painful Swallowing Respiratory: No Cough, No Dyspnea Cardiac: No Chest Pain, No Edema, No Syncope Abdominal/Gastrointestinal: No Abdominal Pain, No Nausea, No Vomiting, No Diarrhea Genitourinary Symptoms: No Dysuria, No Hematuria Musculoskeletal: No Back Pain, No Neck Pain Skin: No Rash Neurological: No Dizziness, No Focal Weakness, No Sensory Changes Psychological: No Symptoms Endocrine: No Symptoms All Other Systems: Reviewed and Negative - Past Medical History Pertinent Past Medical History: Yes Neurological History: No Pertinent History ENT History: No Pertinent History Cardiac History: No Pertinent History Respiratory History: Asthma Endocrine Medical History: No Pertinent History Musculoskeletal History: Other GI Medical History: No Pertinent History History: No Pertinent History Psycho-Social History: No Pertinent History Male Reproductive Disorders: No Pertinent History Other Medical History: 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 - Past Surgical History Past Surgical History: Yes Neuro Surgical History: No Pertinent History Cardiac: No Pertinent History Respiratory: No Pertinent History Gastrointestinal: No Pertinent History Genitourinary: No Pertinent History Musculoskeletal: No Pertinent History Male Surgical History: No Pertinent History Other Surgical History: fatty tumor removed from back - Social History Smoking Status: Current some day smoker How long have you smoked: 15 yrs Exposure to second hand smoke: Yes Drug Use: none Patient Lives Alone: No - Nursing Vital Signs Nursing Vital Signs: Initial Vital Signs Temperature 98.5 F 04/10/23 19:16 Pulse Rate 116 H 04/10/23 19:16 Respiratory Rate 16 04/10/23 19:16 Blood Pressure 151/90 04/10/23 19:16 O2 Sat by Pulse Oximetry 96 04/10/23 19:16 Pain Scale Pain Intensity 8 - Physical Exam General Appearance: no apparent distress, alert Eye Exam: bilateral eye: normal inspection, PERRL, EOMI Ear Exam: bilateral ear: auricle normal, canal normal, TM normal Nasal Exam: normal inspection Throat Exam: pharynx normal, dental tenderness (Tooth #2), moist mucus membranes, No pharynx swelling, No pharynx tenderness, No tongue swollen, No tonsillar exudate, No trismus Neck Exam: normal inspection, non-tender, supple, full range of motion, trachea midline, No limited range of motion, No lymphadenopathy (R), No lymphadenopathy (L), No tender lateral, No tender midline, No Brudzinski's sign, No meningismus Cardiovascular/Respiratory Exam: normal breath sounds, regular rate/rhythm Abdominal Exam: non-tender, soft Neurologic Exam: alert, oriented x 3, applications processor II-XII nml as tested, normal mood/affect, sensation nml, No motor deficits Skin Exam: normal color, warm, dry SpO2: 96 O2 Delivery: Room Air - Course Nursing assessment & vital signs reviewed: Yes Ordered Tests: Medication Summary Discontinued Medications Generic Name Dose Route Start Last Admin Trade Name Freq PRN Reason Stop Dose Admin Amoxicillin 500 mg 04/10/23 19:29 04/10/23 19:39 Amoxicillin Trihydrate 500 Mg Capsule PO 04/10/23 19:30 500 mg STAT ONE Administration Amoxicillin Confirm 04/10/23 19:32 Amoxicillin Trihydrate 500 Mg Capsule Administered 04/10/23 19:33 Dose 500 mg .ROUTE .STK-MED ONE Bupivacaine HCl 5 ml 04/10/23 19:28 04/10/23 19:39 Bupivacaine Hcl 2.5 Mg/Ml 10 Ml IJ 04/10/23 19:29 5 ml STAT ONE Administration Bupivacaine HCl Confirm 04/10/23 19:32 Bupivacaine Hcl 2.5 Mg/Ml 10 Ml Administered 04/10/23 19:33 Dose 10 ml .ROUTE .STK-MED ONE Lidocaine HCl 5 ml 04/10/23 19:28 04/10/23 19:40 Lidocaine Hcl 1% 20 Ml Mdv 20 Ml Ml IJ 04/10/23 19:29 5 ml STAT ONE Administration Lidocaine HCl Confirm 04/10/23 19:32 Lidocaine Hcl 1% 20 Ml Mdv 20 Ml Ml Administered 04/10/23 19:33 Dose 5 ml .ROUTE .STK-MED ONE - Progress Progress: unchanged Progress Note: 04/10/23 19:47 Patient declined posterior superior alveolar nerve block at this time. I reviewed patient this may give him the relief that he is looking for as there is no other interventions that can be performed at this time to the tooth without a dental professional. 04/10/23 19:56 Patient is a 37-year-old male comes in with right upper dental pain for the last 2 months intermittently, flareup 1 hour prior to coming into the emergency department. Patient no other concerning findings on his review of systems or physical exam, and I offered him a posterior superior alveolar nerve block but he declined at this time. Patient be sent home with amoxicillin due for next 5 days as well as loading to help with breakthrough pain and if pain is severe short course of Percocet to do every 6 hours as needed. Patient was given referral to dentist to follow-up with dental issues as I reviewed them there is limited procedures we could do besides the dental block for dental pain here in the emergency department. Patient's times not require any imaging studies or transfers any other facilities that have HEENT surgeons and can be discharged home to follow-up as an outpatient. Patient was encouraged to quit smoking altogether. Patient has return back to the nearest emergency room if she has any odynophagia, dysphagia, hematuria, swelling to his face, new skin rash, new difficulty urinating, new abdominal pain, chest pain, any fever or any other concerning signs or symptoms that were not present at today's emergency room visit for immediate reevaluation in the nearest emergency department Counseled pt/family regarding: diagnosis, need for follow-up, smoking cessation - Departure Departure Disposition: Home Clinical Impression: Pain due to dental caries, Elevated blood pressure reading without diagnosis of hypertension Condition: Good Critical Care Time: No Referrals: TONI GUPTA DDS [NON-STAFF PHY W/O PRIVILEGES] - Follow up/PCP as directed Instructions: Dental Pain (DC), Tooth Decay, Adult (DC), DASH Diet Additional Instructions: Return back to the nearest emergency room if you have any fever, painful swallowing, swelling in any joints, swelling to your face, new chest pain, new shortness of breath, new back pain, new abdominal pain or any other concerning signs or symptoms that were not present at today's emergency room visit for immediate reevaluation in the nearest emergency department Prescriptions: Oxycodone HCl/Acetaminophen [Percocet 5-325 mg Tablet] 1 each PO Q6H PRN PRN #10 tablet MDD 4 PRN Reason: Pain Amoxicillin [AMOXIL 250 MG CAPSULE] 2 cap PO TIDWM #30 cap Etodolac 400 mg [Lodine 400 mg] 400 mg PO BID PRN #20 tablet PRN Reason: Pain
[2023-04-10] MEDS ORDERED: AMOXIL 500 MG PO ONE (19:29)
[2023-04-10] MEDS ORDERED: XYLOCAINE 1% HCL 20 ML MDV ONE (19:32)
[2023-04-10] MEDS ORDERED: Sensorcaine 0.25% 10 ML ONE (19:32)
[2023-04-10] MEDS ORDERED: AMOXIL 500 MG ONE (19:32)
[2023-04-10 19:59] VITALS: PULSE 97
[2023-04-10 20:13] VITALS: BP 109/85; RESP 16; O2SAT 95
[2023-04-10] MEDS ORDERED: PERCOCET TABLET 5/325MG PO STA (20:35)
[2023-04-10] MEDS ORDERED: PERCOCET TABLET 5/325MG ONE (20:37)
== END 2023-04-10 20:44 | disposition home or self-care (01) ==
LOC: ED 19:08
DX: K02.9 Dental caries, unspecified (principal); K08.89 Other specified disorders of teeth and supporting structures; R03.0 Elevated blood-pressure reading, without diagnosis of hypertension; Z28.310 Unvaccinated for COVID-19; Z72.0 Tobacco use; Z79.891 Long term (current) use of opiate analgesic
CPT/HCPCS: 87651; 96372; 99283; A9270-GY

== ENCOUNTER 2023-05-01 11:19 | Emergency (ER) | payer OTHER ==
[2023-05-01 11:27] VITALS: RESP 20
--- NOTE | 2023-05-01 11:40 | ERPHSYRPT ---
- History of Present Illness Time Seen by Provider: 05/01/23 11:35 Source: patient Exam Limitations: no limitations Patient Subjective Stated Complaint: Pt states "I was emptying a pool and fell and caught myself with my arm and I have carpal tunnel in both wrists and my l eft one really hurts today." Triage Nursing Assessment: Pt presented alert and oriented X 3, skin pwd. Pt ambulates with an upright steady gait, able to speak in clear full sentences pt left wrist has no deformity, no swelling noted. Physician History: pt fell back onto left wrist yesterday and has increased pain today. Nop other complaints of injuries or pain with full ROM all ext. chest and abd nontender without peritoneal signs. Normal mental status and N/V intact. discussed risks/benefits with pt of x-ray and he wishes to proceed - ordered and result discussed with pt. Occurred: yesterday Method of Injury: fell Quality: constant, sharpness, throbbing Severity of Pain-Max: moderate Severity of Pain-Current: moderate Extremities Pain Location: wrist: left Modifying Factors: Improves With: immobilization, movement Associated Symptoms: none Allergies/Adverse Reactions: No Known Drug Allergies Allergy (Verified 04/10/23 19:25) Home Medications: Gabapentin [Gralise] 300 mg PO DAILY 05/01/23 [History] clonazePAM [Clonazepam] 0.5 mg PO DAILY 05/01/23 [History] Hx Tetanus, Diphtheria Vaccination/Date Given: No Hx Influenza Vaccination/Date Given: Yes Hx Pneumococcal Vaccination/Date Given: No Immunizations Up to Date: Yes Travel Risk - International Travel Have you traveled outside of the country in past 3 weeks: No - Coronavirus Screening Are you exhibiting any of the following symptoms?: No Close contact with a COVID-19 positive Pt in past 14-21 Days: No - Vaccine Status Have you recieved a Covid-19 vaccination: No - Review of Systems Constitutional: No Fever, No Chills Eyes: No Symptoms Ears, Nose, & Throat: No Symptoms Respiratory: No Cough, No Dyspnea Cardiac: No Chest Pain, No Edema, No Syncope Abdominal/Gastrointestinal: No Abdominal Pain, No Nausea, No Vomiting, No Diarrhea Genitourinary Symptoms: No Dysuria Musculoskeletal: Fall, Injury, Joint Pain, No Back Pain, No Neck Pain Skin: No Rash Neurological: No Dizziness, No Focal Weakness, No Sensory Changes Psychological: No Symptoms Endocrine: No Symptoms Hematologic/Lymphatic: No Symptoms Immunological/Allergic: No Symptoms All Other Systems: Reviewed and Negative - Past Medical History Pertinent Past Medical History: Yes Neurological History: No Pertinent History ENT History: No Pertinent History Cardiac History: No Pertinent History Respiratory History: Asthma Endocrine Medical History: No Pertinent History Musculoskeletal History: Other GI Medical History: No Pertinent History History: No Pertinent History Psycho-Social History: No Pertinent History Male Reproductive Disorders: No Pertinent History Other Medical History: 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 - Past Surgical History Past Surgical History: Yes Neuro Surgical History: No Pertinent History Cardiac: No Pertinent History Respiratory: No Pertinent History Gastrointestinal: No Pertinent History Genitourinary: No Pertinent History Musculoskeletal: No Pertinent History Male Surgical History: No Pertinent History Other Surgical History: fatty tumor removed from back - Social History Smoking Status: Current some day smoker How long have you smoked: 15 yrs Exposure to second hand smoke: Yes Drug Use: none Patient Lives Alone: No - Nursing Vital Signs Nursing Vital Signs: Initial Vital Signs Temperature 98.2 F 05/01/23 11:22 Pulse Rate 98 H 05/01/23 11:22 Respiratory Rate 20 05/01/23 11:22 O2 Sat by Pulse Oximetry 95 05/01/23 11:22 Pain Scale Pain Intensity 4 - Physical Exam General Appearance: no apparent distress, alert Eyes, Ears, Nose, Throat Exam: moist mucous membranes Neck Exam: non-tender, supple Cardiovascular/Respiratory Exam: chest non-tender, normal breath sounds, regular rate/rhythm, no respiratory distress Abdominal Exam: non-tender, No guarding Back Exam: normal inspection, No vertebral tenderness Shoulder Exam: normal inspection, non-tender, no evidence of injury, normal ROM Elbow/Forearm Exam: normal inspection, non-tender, no evidence of injury, normal ROM Wrist Exam: pain, soft tissue tenderness, swelling Hand Exam: normal inspection, non-tender, no evidence of injury, normal ROM DTR - Upper Extremity Exam: bicep (R): 2+, bicep (L): 2+, tricep (R): 2+, tricep (L): 2+ Neuro/Tendon Exam: normal sensation, normal motor functions, normal tendon functions Mental Status Exam: alert, oriented x 3, cooperative Skin Exam: normal color, warm, dry SpO2 Interpretation: normal SpO2: 95 O2 Delivery: Room Air Procedures - Splinting Time of Procedure: 13:34 Location of Splint: Left, Wrist Type of Splint: Velcro Splint Splint Applied By: ED Nurse Pre-Proc Neuro Vasc Exam: normal Post-Proc Neuro Vasc Exam: neurovascular intact, good alignment, unchanged from pre-exam - Course Nursing assessment & vital signs reviewed: Yes - Radiology Exams Left Wrist X-ray Interpretation: Reviewed by me, Other (no obvious fx but will splint as occult or ligament injury) Ordered Tests: Active Orders 24 hr Category Date Time Status WRIST (MIN 3 VIEWS) Stat Exams 05/01/23 11:34 Taken - Progress Progress: improved, re-examined Counseled pt/family regarding: diagnosis, need for follow-up, rad results Medical Desision Making - Diagnostic Testing Diagnostic test were ordered, analyzed, and reviewed by me: Yes Radiological Interpretation: Reviewed by me - Risk of complications The pt has a mod risk of morbidity or mortality based on: Need for prescription drug management - Departure Departure Disposition: Home Clinical Impression: occult fx/ligament injury Left wrist Condition: Good Critical Care Time: No Referrals: Provider,Unknown [NON-STAFF PHY W/O PRIVILEGES] - Follow up/PCP as directed Instructions: Wrist Fracture (DC), Common Wrist Injuries (DC), Wrist Sprain (DC) Additional Instructions: This may be a hairline ( occult) fracture but is at least a ligament injury to your wrist so we are treating it with a spint and you should see your Dr. next week for followup and possible referral to ortho. return meantime if not improving. Use ice to help pain and elevate. see your dr also for your blood pressure.
[2023-05-01 13:21] VITALS: BP 142/80; PULSE 88; TEMP 97.8
[2023-05-01] MEDS ORDERED: HYDROCODONE-ACETAMIN 10-325 MG ONE (13:36)
[2023-05-01 13:37] VITALS: O2SAT 95
[2023-05-01] MEDS ORDERED: HYDROCODONE-ACETAMIN 10-325 MG PO PRN ×2 (13:38)
--- NOTE | 2023-05-01 20:03 | XRAY ---
Indication: Pain following fall. Comparison: None 3 view left wrist demonstrates normal bones, articulation, and soft tissues.
== END 2023-05-01 13:48 ==
LOC: ED 11:19
DX: S69.92XA Unspecified injury of left wrist, hand and finger(s), initial encounter (principal); W19.XXXA Unspecified fall, initial encounter; Z79.899 Other long term (current) drug therapy; Z28.310 Unvaccinated for COVID-19; Z72.0 Tobacco use
CPT/HCPCS: 73110; 99283; L3908; A9270-GY

== ENCOUNTER 2023-07-17 09:50 | Emergency (ER) | payer BC, OTHER ==
[2023-07-17 10:02] VITALS: PULSE 86; TEMP 96.8; O2SAT 94
--- NOTE | 2023-07-17 10:28 | ERPHSYRPT ---
- History of Present Illness Time Seen by Provider: 07/17/23 10:25 Source: patient Exam Limitations: no limitations Patient Subjective Stated Complaint: sore throat for 4 days Triage Nursing Assessment: Pt brought self to the ER, hypertensive, rates throat pain as 4/10, can't stop moving and is picking at his skin, pulses normal, skin n/w/d, asked for a mask but is messing with it and then places it in his pocket Physician History: 37 years old male with past medical history of asthma, presenting to the emergency room complaining of sore throat that he has been having for the last 2 weeks. Patient is denying any fever he has the chills. He states that he has been taking ibuprofen almost 4 tablets with NO relief. It is painful to swallow he is denying any chest pain or shortness of breath. He has some stuffy nose but no earache. He has not been exposed to anyone with the COVID-19 infection or strep throats. He did a COVID-19 home test that was negative. Allergies/Adverse Reactions: No Known Drug Allergies Allergy (Verified 07/17/23 10:02) Home Medications: Gabapentin [Gralise] 300 mg PO DAILY 05/01/23 [History] clonazePAM [Clonazepam] 0.5 mg PO DAILY 05/01/23 [History] Hx Tetanus, Diphtheria Vaccination/Date Given: No Hx Influenza Vaccination/Date Given: Yes Hx Pneumococcal Vaccination/Date Given: No Travel Risk - International Travel Have you traveled outside of the country in past 3 weeks: No - Coronavirus Screening Are you exhibiting any of the following symptoms?: No Close contact with a COVID-19 positive Pt in past 14-21 Days: No - Vaccine Status Have you recieved a Covid-19 vaccination: No - Review of Systems Constitutional: Chills Eyes: No Symptoms Ears, Nose, & Throat: Throat Pain, Painful Swallowing Respiratory: No Cough, No Dyspnea Cardiac: No Chest Pain, No Edema, No Syncope Abdominal/Gastrointestinal: No Abdominal Pain, No Nausea, No Vomiting, No Diarrhea Genitourinary Symptoms: No Dysuria Musculoskeletal: No Back Pain, No Neck Pain Skin: No Rash Neurological: No Dizziness, No Focal Weakness, No Sensory Changes Psychological: No Symptoms Endocrine: No Symptoms All Other Systems: Reviewed and Negative - Past Medical History Pertinent Past Medical History: Yes Neurological History: No Pertinent History ENT History: No Pertinent History Cardiac History: No Pertinent History Respiratory History: Asthma Endocrine Medical History: No Pertinent History Musculoskeletal History: Other GI Medical History: No Pertinent History History: No Pertinent History Psycho-Social History: No Pertinent History Male Reproductive Disorders: No Pertinent History Other Medical History: 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 - Past Surgical History Past Surgical History: Yes Neuro Surgical History: No Pertinent History Cardiac: No Pertinent History Respiratory: No Pertinent History Gastrointestinal: No Pertinent History Genitourinary: No Pertinent History Musculoskeletal: No Pertinent History Male Surgical History: No Pertinent History Other Surgical History: fatty tumor removed from back - Social History Smoking Status: Former smoker How long have you smoked: 15 yrs Exposure to second hand smoke: No Drug Use: none Patient Lives Alone: No - Nursing Vital Signs Nursing Vital Signs: Initial Vital Signs Temperature 96.8 F 07/17/23 09:53 Pulse Rate 86 07/17/23 09:53 O2 Sat by Pulse Oximetry 94 L 07/17/23 09:53 Pain Scale Pain Intensity 4 - Physical Exam General Appearance: no apparent distress, alert Eye Exam: PERRL/EOMI, eyes nml inspection Ears, Nose, Throat Exam: normal ENT inspection, TMs normal, pharynx normal, moist mucous membranes, pharyngeal erythema, tonsillar exudate Neck Exam: normal inspection, non-tender, supple, full range of motion Respiratory Exam: normal breath sounds, lungs clear, No respiratory distress Cardiovascular Exam: regular rate/rhythm, normal heart sounds Gastrointestinal/Abdomen Exam: soft, No tenderness Back Exam: normal inspection, No CVA tenderness, No vertebral tenderness Extremity Exam: normal inspection, normal range of motion Neurologic Exam: alert, oriented x 3, cooperative, normal mood/affect, sensation nml, No motor deficits Skin Exam: normal color, warm, dry, No rash Lymphatic Exam: No adenopathy SpO2: 94 Lab/Rad Data: Laboratory Results 07/17/23 Range/Units 10:23 Group A Strep Antibody NOT DETECTED (NEGATIVE) - Progress Progress Note: 07/17/23 10;30 37 years old male with past medical history of asthma, presenting to the emergency room complaining of sore throat that he has been having for the last 2 weeks. Patient is denying any fever he has the chills. He states that he has been taking ibuprofen almost 4 tablets with NO relief. It is painful to swallow he is denying any chest pain or shortness of breath. He has some stuffy nose but no earache. He has not been exposed to anyone with the COVID-19 infection or strep throats. He did a COVID-19 home test that was negative. Emergency room course medical decision making Will check for rapid strep. 11:20 AM Rapid strep is negative. The patient has been having this pain for 2 weeks, his throat looks erythematous swollen with some exudates. Will cover empirically with Z-Kevin, pending throat culture results. He is told to continue alternating Tylenol and ibuprofen Follow-up with his family physician in 2 to 3 days. - Departure Departure Disposition: Home Clinical Impression: Acute pharyngitis Condition: Stable Critical Care Time: No Referrals: DOCTOR,NO FAMILY [Primary Care Provider] - Follow up/PCP as directed Instructions: Sore Throat, Adult (DC), Viral Pharyngitis (DC) Prescriptions: Naproxen 500 mg [Naprosyn 500 MG] 500 mg PO BID #20 tablet Azithromycin 250 mg [Zithromax 250 MG TABLET] 250 mg PO ZPACK #6 tablet
== END 2023-07-17 11:33 | disposition home or self-care (01) ==
LOC: ED 09:50
DX: J02.9 Acute pharyngitis, unspecified (principal); Z79.899 Other long term (current) drug therapy; Z28.310 Unvaccinated for COVID-19
CPT/HCPCS: 87070; 87651; 99282

== ENCOUNTER 2023-09-20 11:49 | Emergency (ER) | payer OTHER ==
[2023-09-20] MEDS ORDERED: Augmentin 875-125 Tablet PO ONE (12:04)
[2023-09-20] MEDS ORDERED: TORAdol 30 mg Injection IM ONE (12:05)
[2023-09-20 12:09] VITALS: BP 130/80; PULSE 80; RESP 19; TEMP 98.4; O2SAT 96
[2023-09-20] MEDS ORDERED: Augmentin 875-125 Tablet ONE (12:10)
[2023-09-20] MEDS ORDERED: TORAdol 30 mg Injection ONE (12:10)
--- NOTE | 2023-09-20 12:13 | ERPHSYRPT ---
- History of Present Illness Time Seen by Provider: 09/20/23 12:09 Source: patient Exam Limitations: no limitations Physician History: 29-year-old male presents to our ED for treatment of dental pain. Tooth #16 is painful tender. Pain worse with mastication. Pain improved with rest. Patient tried to get into see a dentist but would not be able to do so for another 3 weeks. Patient requesting antibiotics. Patient voices no other complaints or concerns at this time. Portions of this note were created with voice recognition technology. There may be grammatical, spelling, punctuation or sound alike errors Timing/Duration: yesterday Severity: moderate Modifying Factors: Improves With: nothing Associated Symptoms: other (Mastication) Allergies/Adverse Reactions: No Known Drug Allergies Allergy (Verified 09/20/23 11:55) Home Medications: Gabapentin [Gralise] 300 mg PO DAILY 05/01/23 [History] clonazePAM [Clonazepam] 0.5 mg PO DAILY 05/01/23 [History] Hx Tetanus, Diphtheria Vaccination/Date Given: No Hx Influenza Vaccination/Date Given: Yes Hx Pneumococcal Vaccination/Date Given: No Travel Risk - Vaccine Status Have you recieved a Covid-19 vaccination: No - Review of Systems Constitutional: No Symptoms, No Fever, No Chills Eyes: No Symptoms Ears, Nose, & Throat: No Symptoms Respiratory: No Symptoms, No Cough, No Dyspnea Cardiac: No Symptoms, No Chest Pain, No Edema, No Syncope Abdominal/Gastrointestinal: No Symptoms, No Abdominal Pain, No Nausea, No Vomiting, No Diarrhea Genitourinary Symptoms: No Symptoms, No Dysuria Musculoskeletal: No Symptoms, No Back Pain, No Neck Pain Skin: No Symptoms, No Rash Neurological: No Symptoms, No Dizziness, No Focal Weakness, No Sensory Changes Psychological: No Symptoms Endocrine: No Symptoms Hematologic/Lymphatic: No Symptoms Immunological/Allergic: No Symptoms All Other Systems: Reviewed and Negative - Past Medical History Pertinent Past Medical History: Yes Neurological History: No Pertinent History ENT History: No Pertinent History Cardiac History: No Pertinent History Respiratory History: Asthma Endocrine Medical History: No Pertinent History Musculoskeletal History: Other GI Medical History: No Pertinent History History: No Pertinent History Psycho-Social History: No Pertinent History Male Reproductive Disorders: No Pertinent History Other Medical History: 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 - Past Surgical History Past Surgical History: Yes Neuro Surgical History: No Pertinent History Cardiac: No Pertinent History Respiratory: No Pertinent History Gastrointestinal: No Pertinent History Genitourinary: No Pertinent History Musculoskeletal: No Pertinent History Male Surgical History: No Pertinent History Other Surgical History: fatty tumor removed from back - Social History Smoking Status: Former smoker How long have you smoked: 15 yrs Exposure to second hand smoke: No Drug Use: none Patient Lives Alone: No - Physical Exam General Appearance: no apparent distress, alert Eye Exam: PERRL/EOMI, eyes nml inspection Ears, Nose, Throat Exam: normal ENT inspection, pharynx normal, moist mucous membranes Neck Exam: normal inspection, non-tender, supple, full range of motion Respiratory Exam: normal breath sounds, lungs clear, airway intact, No respiratory distress Cardiovascular Exam: regular rate/rhythm, normal heart sounds, normal peripheral pulses Gastrointestinal/Abdomen Exam: soft, normal bowel sounds, No tenderness, No mass Back Exam: normal inspection, normal range of motion, No CVA tenderness, No vertebral tenderness Extremity Exam: normal inspection, normal range of motion, pelvis stable Neurologic Exam: alert, oriented x 3, cooperative, normal mood/affect, sensation nml, No motor deficits Skin Exam: normal color, warm, dry, No rash Lymphatic Exam: No adenopathy SpO2 Interpretation: normal O2 Delivery: Room Air - Course Nursing assessment & vital signs reviewed: Yes Ordered Tests: Medication Summary Discontinued Medications Generic Name Dose Route Start Last Admin Trade Name Freq PRN Reason Stop Dose Admin Amoxicillin/Clavulanate Potassium 875 mg 09/20/23 12:04 Amox Tr/Potassium Clavulanate 875 Mg Tablet PO 09/20/23 12:05 STAT ONE Ketorolac Tromethamine 60 mg 09/20/23 12:05 Ketorolac Tromethamine 30 Mg/Ml Inj IM 09/20/23 12:06 STAT ONE - Progress Progress: improved Progress Note: 38-year-old male presents to our ED for evaluation of dental pain. Tooth #16 is swollen and tender. Patient received a dose of Augmentin and Toradol in our ED. A prescription for the same was forwarded to patient's pharmacy. Patient will follow-up with his dentist in 3 weeks as scheduled. Portions of this note were created with voice recognition technology. There may be grammatical, spelling, punctuation or sound alike errors Complexity problem addressed is moderate acute complicated No critical care time Complexity data reviewed is none. No specialized testing ordered. Diagnosis made based on history and physical exam Risk complication and a risk morbidity/mortality patient management is moderate. Prescription for Augmentin and Toradol forwarded to patient's pharmacy. Vital stable time spent to discharge patient is approximately 15 minutes. Plan of care established for shared decision making. No social determinants of health present impede follow-up. 09/20/23 12:12 Counseled pt/family regarding: diagnosis, need for follow-up - Departure Departure Disposition: Home Clinical Impression: Pain, dental, Dental abscess Condition: Stable Critical Care Time: No Referrals: DOCTOR,NO FAMILY [Primary Care Provider] - Follow up/PCP as directed IZZY FERNANDEZ DO [ACTIVE STAFF] - Follow up/PCP as directed Additional Instructions: Discharge/Care Plan ASHLY ROSS was seen on 09/20/23 in the Emergency Room. The patient was counseled regarding Diagnosis,Lab results, Imaging studies, need for follow up and when to return to the Emergency Room. Prescriptions given: Discharge Note I have spoken with the patient and/or caregivers. I have explained the patient's condition, diagnosis and treatment plan based on the information available to me at this time. I have answered the patient's and/or caregiver's questions and addressed any concerns. The patient and/or caregivers have as good understanding of the patient's diagnosis, condition and treatment plan as can be expected at this point. The vital signs have been stable. The patient's condition is stable and appropriate for discharge from the emergency department. The patient will pursue further outpatient evaluation with the primary care physician or other designated or consulting physician as outlined in the discharge instructions. The patient and/or caregivers are agreeable to this plan of care and follow-up instructions have been explained in detail. The patient and/or caregivers have received these instruction. The patient/and or caregivers are aware that any significant change in condition or worsening of symptoms should prompt an immediate return to this or the closest emergency department or call 911. Prescriptions: Amox Tr/Potass Clav. 875 mg [Augmentin 875-125 Tablet] 875 mg PO BID 7 Days #14 tablet Ketorolac Trometh 10 mg Tab [TORAdol 10 MG TABLET] 10 mg PO TID 5 Days #15 tablet
== END 2023-09-20 12:35 | disposition home or self-care (01) ==
LOC: ED 11:49
DX: K04.7 Periapical abscess without sinus (principal); K08.89 Other specified disorders of teeth and supporting structures; Z79.899 Other long term (current) drug therapy; Z28.310 Unvaccinated for COVID-19
CPT/HCPCS: 96372; 99283; J1885; A9270-GY

== ENCOUNTER 2023-10-05 12:16 | Emergency (ER) | payer OTHER ==
[2023-10-05 13:43] VITALS: RESP 20
[2023-10-05] MEDS ORDERED: TORAdol 30 mg Injection ONE (15:50)
[2023-10-05] MEDS: TORAdol 30 mg Injection IM ONE (15:51)
[2023-10-05 15:56] VITALS: BP 128/80; PULSE 74; TEMP 98.1; O2SAT 98
--- NOTE | 2023-10-05 16:27 | ERPHSYRPT ---
- History of Present Illness Time Seen by Provider: 10/05/23 14:55 Source: patient Exam Limitations: no limitations Patient Subjective Stated Complaint: Pt states "I went to my dentist today to have 4 teeth pulled and they said they were to bad for them so he referred me to a surgeon and I just need help with the pain until I can see them." Triage Nursing Assessment: Pt presented alert and oriented X 3, skin wpd. Pt ambualtes with an upright steady gait, able to speak in clear full sentences. Pt resting on the cough. Physician History: 38-year-old is evaluated for multiple caries, has evaluated by dentist today, w as recommended to have multiple tooth extraction done by maxillofacial surgery. Patient reports has hearing increasing pain for the last couple of weeks and has been taking antibiotics with no significant relief. Patient has exposed nerve causing pain. No swelling fever or chills reported. Allergies/Adverse Reactions: No Known Drug Allergies Allergy (Verified 09/20/23 11:55) Home Medications: clonazePAM [Clonazepam] 0.5 mg PO DAILY 05/01/23 [History] Hx Tetanus, Diphtheria Vaccination/Date Given: No Hx Influenza Vaccination/Date Given: Yes Hx Pneumococcal Vaccination/Date Given: No Immunizations Up to Date: No Travel Risk - International Travel Have you traveled outside of the country in past 3 weeks: No - Coronavirus Screening Are you exhibiting any of the following symptoms?: No Close contact with a COVID-19 positive Pt in past 14-21 Days: No - Vaccine Status Have you recieved a Covid-19 vaccination: No - Review of Systems Constitutional: No Symptoms Eyes: No Symptoms Ears, Nose, & Throat: Mouth Pain, Loose Teeth Respiratory: No Symptoms Cardiac: No Symptoms Abdominal/Gastrointestinal: No Symptoms Musculoskeletal: No Symptoms Endocrine: No Symptoms Hematologic/Lymphatic: No Symptoms - Past Medical History Pertinent Past Medical History: Yes Neurological History: No Pertinent History ENT History: No Pertinent History Cardiac History: No Pertinent History Respiratory History: Asthma Endocrine Medical History: No Pertinent History Musculoskeletal History: Other GI Medical History: No Pertinent History History: No Pertinent History Psycho-Social History: No Pertinent History Male Reproductive Disorders: No Pertinent History Other Medical History: 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 - Past Surgical History Past Surgical History: Yes Neuro Surgical History: No Pertinent History Cardiac: No Pertinent History Respiratory: No Pertinent History Gastrointestinal: No Pertinent History Genitourinary: No Pertinent History Musculoskeletal: No Pertinent History Male Surgical History: No Pertinent History Other Surgical History: fatty tumor removed from back - Social History Smoking Status: Former smoker How long have you smoked: 15 yrs Exposure to second hand smoke: No Drug Use: none Patient Lives Alone: No - Nursing Vital Signs Nursing Vital Signs: Initial Vital Signs Temperature 97.9 F 10/05/23 13:38 Pulse Rate 78 10/05/23 13:38 Respiratory Rate 20 10/05/23 13:38 Blood Pressure 163/94 10/05/23 13:38 O2 Sat by Pulse Oximetry 96 10/05/23 13:38 Pain Scale Pain Intensity 4 - Physical Exam General Appearance: no apparent distress, alert Eye Exam: bilateral eye: normal inspection, PERRL, EOMI Ear Exam: bilateral ear: auricle normal, canal normal, TM normal Nasal Exam: normal inspection Throat Exam: dental tenderness (Multiple upper and lower premolar and molar area dental caries with minimal tenderness. 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 Skin Exam: normal color SpO2 Interpretation: normal SpO2: 98 O2 Delivery: Room Air Ordered Tests: Medication Summary Discontinued Medications Generic Name Dose Route Start Last Admin Trade Name Karina PRN Reason Stop Dose Admin Ketorolac Tromethamine 30 mg 10/05/23 15:49 10/05/23 15:51 Ketorolac Tromethamine 30 Mg/Ml Inj IM 10/05/23 15:50 30 mg STAT ONE Administration Ketorolac Tromethamine Confirm 10/05/23 15:50 Ketorolac Tromethamine 30 Mg/Ml Inj Administered 10/05/23 15:51 Dose 30 mg .ROUTE .STK-MED ONE - Progress Progress: pain not gone completely Progress Note: 10/05/23 16:38 38-year-old is evaluated for dental pain. Patient has multiple dental caries. No obvious gingival swelling or developing abscess. He is on antibiotics. I believe patient has exposed nerves. Is given Toradol, offered dental balls which she declined. I would give him ibuprofen and tramadol to go home and outpatient follow-up appointment as scheduled with maxillofacial surgery. Discussed signs symptoms of worsening needing return to ER which he seems understanding. Counseled pt/family regarding: diagnosis, need for follow-up Medical Desision Making - Diagnostic Testing Diagnostic test were ordered, analyzed, and reviewed by me: No - Risk of complications The pt has a mod risk of morbidity or mortality based on: Need for prescription drug management - Departure Departure Disposition: Home Clinical Impression: Pain due to dental caries Condition: Stable Critical Care Time: No Referrals: Provider,Unknown [Primary Care Provider] - Follow up with PCP 1 day Instructions: Tooth Abscess (DC), Tooth Decay, Adult (DC) Additional Instructions: Take pain medications as needed. Follow-up with your dentist/oral maxillofacial surgeon for reevaluation. Return to ER for any worsening of pain or if have swelling, fever chills etc. Prescriptions: Ibuprofen 600 mg PO Q6HPRN PRN 10 Days #20 tablet PRN Reason: Pain Tramadol HCl 50 mg [Ultram 50 mg] 50 mg PO Q6HPRN PRN 3 Days #12 tablet PRN Reason: Pain
[2023-10-05] MEDS ORDERED: BENADRYL 12.5 MG/5 ML ONE (16:59)
[2023-10-05] MEDS ORDERED: MAALOX ES 30 ML UNIT DOSE ONE (16:59)
[2023-10-05] MEDS ORDERED: XYLOCAINE VISCOUS 2% 15 ML CUP ONE (16:59)
[2023-10-05] MEDS: BENADRYL 12.5 MG/5 ML PO ONE (17:05)
[2023-10-05] MEDS: XYLOCAINE VISCOUS 2% 15 ML CUP PO ONE (17:06)
[2023-10-05] MEDS: MAALOX ES 30 ML UNIT DOSE PO ONE (17:06)
== END 2023-10-05 17:17 | disposition home or self-care (01) ==
LOC: ED 12:16
DX: K02.9 Dental caries, unspecified (principal); K08.89 Other specified disorders of teeth and supporting structures; Z79.891 Long term (current) use of opiate analgesic; Z79.899 Other long term (current) drug therapy; Z28.310 Unvaccinated for COVID-19
CPT/HCPCS: 96372; 99283; J1885; A9270-GY

== ENCOUNTER 2023-11-05 12:25 | Emergency (ER) | payer OTHER ==
[2023-11-05 13:40] VITALS: BP 132/74; TEMP 98.5
[2023-11-05] MEDS ORDERED: MAALOX ES 30 ML UNIT DOSE ONE (14:39)
[2023-11-05] MEDS ORDERED: BENADRYL 12.5 MG/5 ML ONE ×2 (14:39)
[2023-11-05] MEDS ORDERED: XYLOCAINE VISCOUS 2% 15 ML CUP ONE (14:39)
--- NOTE | 2023-11-05 14:39 | ERPHSYRPT ---
- History of Present Illness Time Seen by Provider: 11/05/23 14:20 Source: patient Exam Limitations: no limitations Patient Subjective Stated Complaint: tooth/mouth pain where his wisdom teeth are, dentist is planning on removing, pt is on Amoxicillin Triage Nursing Assessment: Pt brought self to the ER, vitalkp wnl, rates pain as /10, pt has been here almost every month for 7 months for the same thing, pt now states that his dentist sent the referral to the wrong place and now will have his wisdom teeth removed in 2 weeks, pulses normal, skin n/w/d, doesn't appear to be in any distress Severity: mild Modifying Factors: Improves With: ibuprofen Associated Symptoms: denies symptoms Allergies/Adverse Reactions: No Known Drug Allergies Allergy (Verified 11/05/23 13:39) Home Medications: clonazePAM [Clonazepam] 0.5 mg PO DAILY 05/01/23 [History] Hx Tetanus, Diphtheria Vaccination/Date Given: No Hx Influenza Vaccination/Date Given: Yes Hx Pneumococcal Vaccination/Date Given: No Travel Risk - International Travel Have you traveled outside of the country in past 3 weeks: No - Coronavirus Screening Are you exhibiting any of the following symptoms?: No Close contact with a COVID-19 positive Pt in past 14-21 Days: No - Vaccine Status Have you recieved a Covid-19 vaccination: No - Review of Systems Eyes: No Symptoms Ears, Nose, & Throat: Other (Left-sided dental pain) Respiratory: No Symptoms Cardiac: No Symptoms Abdominal/Gastrointestinal: No Symptoms Genitourinary Symptoms: No Symptoms Musculoskeletal: No Symptoms Skin: No Symptoms Neurological: No Symptoms Psychological: No Symptoms Endocrine: No Symptoms Hematologic/Lymphatic: No Symptoms - Past Medical History Pertinent Past Medical History: Yes Neurological History: No Pertinent History ENT History: No Pertinent History Cardiac History: No Pertinent History Respiratory History: Asthma Endocrine Medical History: No Pertinent History Musculoskeletal History: Other GI Medical History: No Pertinent History History: No Pertinent History Psycho-Social History: No Pertinent History Male Reproductive Disorders: No Pertinent History Other Medical History: 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 - Past Surgical History Past Surgical History: Yes Neuro Surgical History: No Pertinent History Cardiac: No Pertinent History Respiratory: No Pertinent History Gastrointestinal: No Pertinent History Genitourinary: No Pertinent History Musculoskeletal: No Pertinent History Male Surgical History: No Pertinent History Other Surgical History: fatty tumor removed from back - Social History Smoking Status: Former smoker How long have you smoked: 15 yrs Exposure to second hand smoke: No Drug Use: none Patient Lives Alone: No - Nursing Vital Signs Nursing Vital Signs: Initial Vital Signs Temperature 98.5 F 11/05/23 13:34 Pulse Rate 82 11/05/23 13:34 Blood Pressure 132/74 11/05/23 13:34 O2 Sat by Pulse Oximetry 94 L 11/05/23 13:34 Pain Scale Pain Intensity 10 - Physical Exam General Appearance: no apparent distress Eye Exam: PERRL/EOMI Ears, Nose, Throat Exam: normal ENT inspection, other (Mild caries noted diffusely, there is no gingival swelling or erythema or edema lateral aspect of the left lower mandible where the patient reports tenderness) Respiratory Exam: normal breath sounds Cardiovascular Exam: regular rate/rhythm Gastrointestinal/Abdomen Exam: soft SpO2: 94 - Progress Progress Note: Patient was informed of the need to continue taking his antibiotics he will be discharged home with a combination of Maalox Benadryl and viscous lidocaine soaked in cotton balls. To be applied to the affected area he was informed of the need to follow-up with his primary care provider and take his medications as prescribed and follow-up with his dentist 11/05/23 14:38 Medical Desision Making - Discussion of managment Agreed on:: need for follow-up - Departure Clinical Impression: Pain due to dental caries Condition: Stable Critical Care Time: No Instructions: Tooth Abscess (DC), Tooth Decay, Adult (DC), Dental Pain (DC)
[2023-11-05] MEDS: MAALOX ES 30 ML UNIT DOSE PO ONE (14:45)
[2023-11-05] MEDS: XYLOCAINE VISCOUS 2% 15 ML CUP PO ONE (14:45)
[2023-11-05] MEDS: BENADRYL 12.5 MG/5 ML PO PRN (14:46)
[2023-11-05] MEDS: TORAdol 10 MG TABLET PO ONE (14:57)
[2023-11-05 15:07] VITALS: PULSE 76; RESP 16; O2SAT 97
== END 2023-11-05 15:07 | disposition home or self-care (01) ==
LOC: ED 12:25
DX: K02.9 Dental caries, unspecified (principal); K08.89 Other specified disorders of teeth and supporting structures; Z79.899 Other long term (current) drug therapy; Z28.310 Unvaccinated for COVID-19
CPT/HCPCS: 99282; A9270-GY

== ENCOUNTER 2024-02-10 09:54 | Emergency (ER) | payer OTHER ==
[2024-02-10 10:10] VITALS: TEMP 98.3
[2024-02-10] MEDS ORDERED: TORAdol 30 mg Injection ONE (10:38)
[2024-02-10] MEDS: TORAdol 30 mg Injection IM ONE (10:39)
--- NOTE | 2024-02-10 10:41 | ERPHSYRPT ---
- History of Present Illness Source: patient Exam Limitations: no limitations Patient Subjective Stated Complaint: back pain off and on for past 3 years, worse since yesterday Triage Nursing Assessment: C/o low back pain. H/o "bulging discs" in low back diagnosed approx 3 years ago. States here today because of increased low back pain past couple days. States works at [employer] and very painful when standing. Denies new injury. Denies problems with urination and states bms normal. aaox3, walked in. Physician History: 38-year-old male with left lumbar pain and left hip pain x 4 years. Patient states that he has some bulging disc and has been referred to pain management. Pain is 8 out of 10 and worse with movement. It does radiate to his left lower extremity. He denies any dysuria, hematuria, fever, paresthesia, paralysis, incontinence of urine/stool, IV drug abuse, or recent epidural injection. There is no fever and recent injury is denied. Timing/Duration: other ( 4 years) Method of Injury: unknown ( denies) Quality: radiating, sharp Back Pain Location: paraspinous muscles ( left paraspinous area rating to the left lower) Back Pain Radiation: lower legs ( left lower EXTR) Severity of Pain-Max: severe Severity of Pain-Current: severe Modifying Factors: Improves With: movement Associated Symptoms: denies symptoms Previous symptoms: same symptoms as today Allergies/Adverse Reactions: No Known Drug Allergies Allergy (Verified 11/05/23 13:39) Hx Tetanus, Diphtheria Vaccination/Date Given: No Hx Influenza Vaccination/Date Given: Yes Hx Pneumococcal Vaccination/Date Given: No Immunizations Up to Date: Yes Travel Risk - International Travel Have you traveled outside of the country in past 3 weeks: No - Emerging Infectious Disease Are you exhibiting symptoms associated with any current EIDs: No - Review of Systems Constitutional: No Symptoms Eyes: No Symptoms Ears, Nose, & Throat: No Symptoms Respiratory: No Symptoms Cardiac: No Symptoms Abdominal/Gastrointestinal: No Symptoms Genitourinary Symptoms: No Symptoms Skin: No Symptoms Neurological: No Symptoms Psychological: No Symptoms Endocrine: No Symptoms Hematologic/Lymphatic: No Symptoms Immunological/Allergic: No Symptoms - Past Medical History Pertinent Past Medical History: Yes Neurological History: No Pertinent History ENT History: No Pertinent History Cardiac History: No Pertinent History Respiratory History: Asthma Endocrine Medical History: No Pertinent History Musculoskeletal History: Other GI Medical History: No Pertinent History History: No Pertinent History Psycho-Social History: No Pertinent History Male Reproductive Disorders: No Pertinent History Other Medical History: 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 - Past Surgical History Past Surgical History: Yes Neuro Surgical History: No Pertinent History Cardiac: No Pertinent History Respiratory: No Pertinent History Gastrointestinal: No Pertinent History Genitourinary: No Pertinent History Musculoskeletal: No Pertinent History Male Surgical History: No Pertinent History Other Surgical History: fatty tumor removed from back - Social History Smoking Status: Never smoker How long have you smoked: 15 yrs Exposure to second hand smoke: No Drug Use: none Patient Lives Alone: No - Social Determinants of Health Will the patient participate in the screening: Yes Do you worry about a steady place to live?: No Do you have any problems with any of the following?: No known problems In the past 12 months,have you had to go without utilities?: No Transportation Issues: No Has anyone in your support network made you feel unsafe?: No Have you or anyone in your house had to go without enough: No - Nursing Vital Signs Nursing Vital Signs: Initial Vital Signs Temperature 98.3 F 02/10/24 10:00 Pulse Rate 76 02/10/24 10:00 Respiratory Rate 16 02/10/24 10:00 Blood Pressure 138/81 02/10/24 10:00 O2 Sat by Pulse Oximetry 97 02/10/24 10:00 Pain Scale Pain Intensity 5 within normal - Physical Exam General Appearance: no apparent distress Eye Exam: PERRL/EOMI, eyes nml inspection Ears, Nose, Throat Exam: normal ENT inspection, TMs normal, pharynx normal, moist mucous membranes Neck Exam: normal inspection, non-tender, supple, full range of motion, No meningismus, No mass, No Brudzinski, No Kernig's, No carotid bruit Respiratory Exam: normal breath sounds, lungs clear, airway intact Cardiovascular Exam: regular rate/rhythm, normal heart sounds, normal peripheral pulses, No murmur Gastrointestinal Exam: soft, normal bowel sounds, No tenderness Back Exam: other (.) Extremity Exam: normal inspection, normal range of motion Neurologic Exam: alert, oriented x 3, cooperative, 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, normal mood/affect, nml cerebellar function, nml station & gait, sensation nml Skin Exam: normal color, warm, dry, No rash Lymphatic Exam: No adenopathy SpO2 Interpretation: normal SpO2: 97 O2 Delivery: Room Air Ordered Tests: Medication Summary Discontinued Medications Generic Name Dose Route Start Last Admin Trade Name Karina PRN Reason Stop Dose Admin Ketorolac Tromethamine 30 mg 02/10/24 10:36 02/10/24 10:39 Ketorolac Tromethamine 30 Mg/Ml Inj IM 02/10/24 10:37 30 mg STAT ONE Administration Ketorolac Tromethamine Confirm 02/10/24 10:38 Ketorolac Tromethamine 30 Mg/Ml Inj Administered 02/10/24 10:39 Dose 30 mg .ROUTE .STK-MED ONE - Progress Progress: improved Progress Note: 02/10/24 11:58 Nursing note and vital signs reviewed. No food or housing insecurity noted. Patient appears to have chronic back pain x 4 years with a mild acute exacerbation. He has no alarming symptoms of incontinence, dysuria, fever, trauma, paralysis, paresthesia, recent epidural injection, or IV drug abuse. patient given 30 g IV Toradol and a prescription was sent to his pharmacy for Toradol 10 g p.o. 3 times daily as needed and Norflex 100 mg p.o. twice daily as needed. Patient advised to follow-up with his PCP or pain management physician which she is seeking an appointment with and or return to ER as needed. He was also advised not to lift more than 15 pounds x 1 week. Patient did not need a work excuse at this time. Counseled pt/family regarding: diagnosis, need for follow-up Medical Desision Making - Risk of complications The pt has a mod risk of morbidity or mortality based on: Need for prescription drug management - Departure Departure Disposition: Home Clinical Impression: Left sciatic nerve pain Condition: Stable Critical Care Time: No Referrals: DOCTOR,NO FAMILY [Primary Care Provider] - Follow up/PCP as directed Instructions: Low Back Pain (DC), Sciatica (DC) Additional Instructions: Rest Heat Massage Avoid lifting over 15 pounds x 1 week Toradol and Norflex as needed for pain Follow-up with your family MD or pain management as soon as possible Return to ER for increasing pain, blood in urine, any paralysis, incontinence of stool or urine, or temperature greater 100.5. Forms: Work/School Release Form Prescriptions: Orphenadrine Citrate 100 mg [Norflex 100 MG Tablet] 100 mg PO BID PRN #12 tab PRN Reason: Pain Ketorolac Trometh 10 mg Tab [TORAdol 10 MG TABLET] 10 mg PO TID PRN PRN #12 tablet PRN Reason: Pain
[2024-02-10 10:57] VITALS: BP 130/80; PULSE 80; RESP 18
[2024-02-10 12:02] VITALS: O2SAT 97
== END 2024-02-10 10:58 | disposition home or self-care (01) ==
LOC: ED 09:54
DX: M54.32 Sciatica, left side (principal)
CPT/HCPCS: 96372; 99282; J1885

== ENCOUNTER 2024-03-05 11:15 | Emergency (ER) | payer OTHER ==
[2024-03-05 11:25] VITALS: BP 130/88; PULSE 79; RESP 18; TEMP 97
--- NOTE | 2024-03-05 11:25 | ERPHSYRPT ---
- History of Present Illness Time Seen by Provider: 03/05/24 11:24 Source: patient Exam Limitations: no limitations Physician History: The patient presented with a chief complaint of right-sided nasal pain and congestion that had been ongoing for a few days. They reported difficulty breathing through the affected nostril and a taste of blood in the throat, but denied any associated fever, cough, or difficulty breathing. The patient had been self-managing the symptoms with ibuprofen and an antibiotic, clindamycin, with no reported improvement. They also reported a negative home COVID-19 test. The patient denied any associated ear pain or sore throat, with symptoms localized to the right nostril. Timing/Duration: day(s) Cough Quality/Degree: mild, productive cough, sputum Possible Cause: no prior episodes Modifying Factors: Worsens With: coughing Associated Symptoms: cough, facial pain, nasal congestion, nasal drainage, No fever, No chills, No chest pain/soreness, No dizziness, No earache, No shortness of breath, No sore throat, No wheezing Allergies/Adverse Reactions: No Known Drug Allergies Allergy (Verified 03/05/24 11:25) Home Medications: Clonazepam [Klonopin] 2 mg PO DAILY 03/05/24 [History] Hx Tetanus, Diphtheria Vaccination/Date Given: No Hx Influenza Vaccination/Date Given: Yes Hx Pneumococcal Vaccination/Date Given: No Travel Risk - Emerging Infectious Disease Are you exhibiting symptoms associated with any current EIDs: No - Review of Systems All Other Systems: Reviewed and Negative - Past Medical History Pertinent Past Medical History: Yes Neurological History: No Pertinent History ENT History: No Pertinent History Cardiac History: No Pertinent History Respiratory History: Asthma Endocrine Medical History: No Pertinent History Musculoskeletal History: Other GI Medical History: No Pertinent History History: No Pertinent History Psycho-Social History: No Pertinent History Male Reproductive Disorders: No Pertinent History Other Medical History: 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 - Past Surgical History Past Surgical History: Yes Neuro Surgical History: No Pertinent History Cardiac: No Pertinent History Respiratory: No Pertinent History Gastrointestinal: No Pertinent History Genitourinary: No Pertinent History Musculoskeletal: No Pertinent History Male Surgical History: No Pertinent History Other Surgical History: fatty tumor removed from back - Social History Smoking Status: Never smoker How long have you smoked: 15 yrs Exposure to second hand smoke: No Drug Use: none Patient Lives Alone: No - Social Determinants of Health Will the patient participate in the screening: Yes Do you worry about a steady place to live?: No In the past 12 months,have you had to go without utilities?: No Transportation Issues: No Has anyone in your support network made you feel unsafe?: No Have you or anyone in your house had to go without enough: No - Nursing Vital Signs Nursing Vital Signs: Initial Vital Signs Temperature 97.0 F 03/05/24 11:24 Pulse Rate 79 03/05/24 11:24 Respiratory Rate 18 03/05/24 11:24 Blood Pressure 130/88 03/05/24 11:24 O2 Sat by Pulse Oximetry 95 03/05/24 11:24 Pain Scale Pain Intensity 4 - Physical Exam General Appearance: no apparent distress, obese Eye Exam: eyes nml inspection Ears, Nose, Throat Exam: TMs normal, moist mucous membranes, pharyngeal erythema, other (boddy nasal turbinates, no mass, no facial pain), No tonsillar exudate Neck Exam: normal inspection, non-tender, supple, full range of motion Respiratory Exam: normal breath sounds, lungs clear, airway intact, No respiratory distress Cardiovascular Exam: regular rate/rhythm, capillary refill <2 sec SpO2 Interpretation: normal O2 Delivery: Room Air - Course Nursing assessment & vital signs reviewed: Yes Ordered Tests: Medication Summary Generic Name Dose Route Start Last Admin Trade Name Freq PRN Reason Stop Dose Admin Ibuprofen 600 mg 03/05/24 12:52 Ibuprofen 600 Mg Tablet PO 03/05/24 12:53 STAT ONE Lab/Rad Data: Laboratory Results 03/05/24 Range/Units 11:39 Influenza Type A Ag NEGATIVE (NEGATIVE) Influenza Type B Ag NEGATIVE (NEGATIVE) RSV (PCR) NEGATIVE (NEGATIVE) SARS-CoV-2 (PCR) NEGATIVE (NEGATIVE) - Progress Progress: improved Air Movement: good Progress Note: COVID/FLU/RSV neg. Sent Mucinex D and Flonase to pharmacy. Blood Culture(s) Obtained: No Antibiotics given: No Counseled pt/family regarding: diagnosis Medical Desision Making - Diagnostic Testing Diagnostic test were ordered, analyzed, and reviewed by me: Yes Radiological Interpretation: Interpreted by me, Reviewed by me - Risk of complications The pt has a mod risk of morbidity or mortality based on: Need for prescription drug management - Departure Departure Disposition: Home Clinical Impression: Painful nose, Congestion of nasal sinus, Cough Condition: Good Critical Care Time: No Referrals: DOCTOR,NO FAMILY [Primary Care Provider] - Follow up/PCP as directed Instructions: Fluticasone (Nasal) Prescriptions: Fluticasone Propionate [Flonase Nasal] 16 gm NS BID #1 unit Guaifenesin/Pseudoephedrne HCl [Mucinex D ER Tablet] 1 each PO BID 7 Days #14 tablet
[2024-03-05 11:32] VITALS: O2SAT 98
[2024-03-05 12:18] LABS: INFLUENZA A NEGATIVE (NEGATIVE); INFLUENZA B NEGATIVE (NEGATIVE); RESPIRATORY SYNCTIAL VIRUS NEGATIVE (NEGATIVE); SARS-CoV-2 Xpert Express NEGATIVE (NEGATIVE)
[2024-03-05] MEDS ORDERED: MOTRIN 600 MG ONE (13:01)
[2024-03-05] MEDS: MOTRIN 600 MG PO ONE (13:03)
== END 2024-03-05 13:15 | disposition home or self-care (01) ==
LOC: ED 11:15
DX: J34.89 Other specified disorders of nose and nasal sinuses (principal); R09.81 Nasal congestion; R05.9 Cough, unspecified; Z79.899 Other long term (current) drug therapy
CPT/HCPCS: 0241U; 99282; A9270-GY

== ENCOUNTER 2024-12-15 12:06 | Emergency (ER) | payer OTHER ==
--- NOTE | 2024-12-15 12:17 | ERPHSYRPT ---
- History of Present Illness Time Seen by Provider: 12/15/24 12:14 Source: patient, family Exam Limitations: no limitations Physician History: This is an overweight 39-year-old white male patient who arrives by private vehicle accompanied by his significant other with the complaint of chest tightness and palpitations. Patient states by the time he arrived to the emergency department, those symptoms have improved. Patient has a longstanding history of anxiety and feels this might be a panic attack. He denies suicidal thoughts or ideation. He denies homicidal thoughts or ideation. Patient stopped his Klonopin 2 months ago and this was the first episode of these similar symptoms since then. Patient has a history of bulging disc and asthma. He has no documented history of coronary artery disease. Timing/Duration: today Severity of Symptoms-Max: mild Severity of Symptoms-Current: mild Context related to: other (Unsure but thinks it is probably a panic attack) Suicidal thoughts: other (None) Associated Symptoms: anxiety, No suicidal ideation Previous symptoms: same symptoms as today, no recent treatment Allergies/Adverse Reactions: No Known Drug Allergies Allergy (Verified 12/15/24 12:26) Hx Tetanus, Diphtheria Vaccination/Date Given: No Hx Influenza Vaccination/Date Given: Yes Hx Pneumococcal Vaccination/Date Given: No Travel Risk - International Travel Have you traveled outside of the country in past 3 weeks: No - Emerging Infectious Disease Are you exhibiting symptoms associated with any current EIDs: No Symptoms: Cough: New Onset - Past Medical History Pertinent Past Medical History: Yes Neurological History: No Pertinent History ENT History: No Pertinent History Cardiac History: No Pertinent History Respiratory History: Asthma Endocrine Medical History: No Pertinent History Musculoskeletal History: Other GI Medical History: No Pertinent History History: No Pertinent History Psycho-Social History: No Pertinent History Male Reproductive Disorders: No Pertinent History Other Medical History: 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 - Past Surgical History Past Surgical History: Yes Neuro Surgical History: No Pertinent History Cardiac: No Pertinent History Respiratory: No Pertinent History Gastrointestinal: No Pertinent History Genitourinary: No Pertinent History Musculoskeletal: No Pertinent History Male Surgical History: No Pertinent History Other Surgical History: fatty tumor removed from back - Social History Smoking Status: Never smoker How long have you smoked: 15 yrs Exposure to second hand smoke: No Drug Use: none Patient Lives Alone: No - Social Determinants of Health Will the patient participate in the screening: Yes Do you worry about a steady place to live?: No In the past 12 months,have you had to go without utilities?: No Transportation Issues: No Has anyone in your support network made you feel unsafe?: No Have you or anyone in your house had to go w/o enough food: No - Review of Systems Constitutional: No Symptoms Eyes: No Symptoms Ears, Nose, & Throat: No Symptoms Respiratory: No Symptoms Cardiac: Chest Pain (Has resolved), Palpitations (Has resolved) Abdominal/Gastrointestinal: No Symptoms Genitourinary Symptoms: No Symptoms Musculoskeletal: No Symptoms Skin: No Symptoms Neurological: No Symptoms Psychological: Anxiety, No Suicidal Ideations, No Homicidal Ideations, No Hallucinations Endocrine: No Symptoms Hematologic/Lymphatic: No Symptoms Immunological/Allergic: No Symptoms All Other Systems: Reviewed and Negative - Nursing Vital Signs Nursing Vital Signs: Initial Vital Signs Temperature 98.1 F 12/15/24 12:20 Pulse Rate 90 12/15/24 12:20 Respiratory Rate 13 12/15/24 12:20 Blood Pressure 119/88 12/15/24 12:20 O2 Sat by Pulse Oximetry 96 12/15/24 12:20 Pain Scale Pain Intensity 0 - Physical Exam General Appearance: no apparent distress, alert, anxiety, obese Eyes, Ears, Nose, Throat Exam: normal ENT inspection, moist mucous membranes Neck Exam: normal inspection, non-tender, supple, full range of motion Respiratory Exam: normal breath sounds, lungs clear, airway intact, No chest tenderness (None now. 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, anxious Appearance: appropriate appearance, no memory impairment Behavior/Eye Contact/Speech: alert & cooperative, good eye contact Thoughts/Hallucinations: normal thought pattern, no apparent hallucination Skin Exam: normal color, warm, dry SpO2 Interpretation: normal O2 Delivery: Room Air - Course Nursing assessment & vital signs reviewed: Yes - Progress Progress: unchanged Progress Note: 12/15/24 13:13 My medical decision making and the assignment of low complexity to this patient's medical issue today is based on review of the patient's past medical history, review of the patient's medication list, review the patient drug allergy list, history present illness and physical findings on examination. My workup intended for this patient includes placement of an intravenous line, CBC, CMP, magnesium level, troponin level, D-dimer level, twelve-lead EKG. As discussed with the patient and his significant other the importance is to rule out emergent issues such as hyponatremia, myocardial infarction or pulmonary embolus. Even though his palpitations, racing heart and chest pain have now resolved, it is unclear as to the cause of his brief symptoms. It may be related to a panic attack but I discussed in detail with both of them the need to have a complete workup. We discussed the risks and benefits and alternatives. He realizes that the symptoms could recur and they could be early signs of pending catastrophe such as a heart attack, pulmonary embolus or . He understands and has opted to sign out AGAINST MEDICAL ADVICE. However I will remotely send a hydroxyzine prescription to his pharmacy in order to help controlling his anxiety. Medical Desision Making - Independent Historian Additional History obtained from: Spouse - Diagnostic Testing Diagnostic test were ordered, analyzed, and reviewed by me: No - Risk of complications Low Risk: Low risk of morbidity from additional dx testing or treatment - Departure Departure Disposition: AMA Clinical Impression: Chest pain, Palpitations, Anxiety Condition: Stable Critical Care Time: No Referrals: DOCTOR,NO FAMILY [NON-STAFF PHY W/O PRIVILEGES, UNKNOWN] - Follow up/PCP as directed Additional Instructions: Return to the emergency department if you wish to reconsider your decision to leave AGAINST MEDICAL ADVICE. Prescriptions: hydrOXYzine HCL [Hydroxyzine HCl] 50 mg PO Q8H PRN #4 tablet PRN Reason: Anxiety
[2024-12-15 12:26] VITALS: TEMP 98.1
[2024-12-15 13:31] VITALS: RESP 18
[2024-12-15 13:35] VITALS: BP 121/86; PULSE 89; O2SAT 98
== END 2024-12-15 13:29 | disposition left against medical advice (07) ==
LOC: ED 12:06
DX: F41.9 Anxiety disorder, unspecified (principal); R07.9 Chest pain, unspecified; R00.2 Palpitations; Z79.899 Other long term (current) drug therapy
CPT/HCPCS: 99283